=== PATIENT | male | born 1940 | race Caucasian/White ===

== ENCOUNTER 2017-12-27 19:39 | Emergency (ER) | payer OTHER ==
[2017-12-27] MEDS ORDERED: FLUORESCEIN SODIUM 0.6 MG/WRAP ONE (20:18)
[2017-12-27] MEDS ORDERED: TETRACAINE HCL 0.5% 2ML OPTH ONE (20:18)
--- OUTSIDE RECORDS SUMMARY | 2017-12-27 20:26 | XMS REPORT | Clinical Summary ---
:1940 Author Organization [facility] Address [address] [place] [address] Care Team Providers Name Role Phone Donald Monzon MD Primary Care Provider Allergies Active Allergy Reactions Severity Noted Date Comments Codeine Rash Low 10/13/2015 Penicillins Rash Low 10/13/2015 Current Medications Prescription Sig. Disp. Refills Start Date End Date Status glipiZIDE Take 5 mg by Active (GLUCOTROL) 5 MG mouth 2 tablet (two) times a day before meals. fenofibrate 145 MG Take 145 mg Active tablet by mouth nightly. ramipril (ALTACE) 5 Take 5 mg by Active MG capsule mouth nightly. aspirin (ECOTRIN) 81 Take 81 mg Active MG enteric coated by mouth tablet nightly. metFORMIN Take 500 mg Active (GLUCOPHAGE) 500 mg by mouth 2 tablet (two) times a day with meals. clopidogrel (PLAVIX) Take 1 90 tablet 3 08/25/2017 Active 75 mg tablet tablet (75 mg total) by mouth nightly. metoprolol tartrate Take 1 180 tablet 3 10/18/2017 Active (LOPRESSOR) 25 mg tablet (25 tabletIndications: mg total) by Essential mouth 2 hypertension (two) times a day. coenzyme Q10 take 1 Active (COQ-10) 100 mg tablet daily capsule pravastatin Take 1 90 tablet 3 11/30/2017 11/30/2018 Active (PRAVACHOL) 80 MG tablet (80 tablet mg total) by mouth daily. metoprolol tartrate Take 1 180 tablet 3 06/03/2016 10/04/2017 Discontinued (LOPRESSOR) 25 mg tablet (25 tabletIndications: mg total) by Essential mouth 2 hypertension (two) times a day. clopidogrel (PLAVIX) Take 1 90 tablet 3 08/18/2016 08/25/2017 Discontinued 75 mg tablet tablet (75 mg total) by mouth nightly. pravastatin Take 1 90 tablet 3 09/03/2016 10/18/2017 Discontinued (PRAVACHOL) 40 MG tablet (40 tablet mg total) by mouth nightly. pravastatin Take 1 90 tablet 3 10/19/2016 10/19/2017 (PRAVACHOL) 80 MG tablet (80 tabletIndications: mg total) by Hyperlipidemia, mouth unspecified nightly. hyperlipidemia type metoprolol tartrate Take 1 180 tablet 3 10/04/2017 10/04/2017 Discontinued (LOPRESSOR) 25 mg tablet (25 tabletIndications: mg total) by Essential mouth 2 hypertension (two) times a day. metoprolol tartrate Take 1 180 tablet 0 10/04/2017 10/18/2017 Discontinued (LOPRESSOR) 25 mg tablet (25 tabletIndications: mg total) by Essential mouth 2 hypertension (two) times a day. pravastatin Take 1 90 tablet 3 11/30/2017 11/30/2017 Discontinued (PRAVACHOL) 80 MG tablet (80 tablet mg total) by mouth daily. Active Problems Problem Noted Date Stented coronary artery 10/26/2016 Hyperlipidemia 10/26/2016 Coronary artery disease involving [place] coronary artery of [place] heart 10/26 without angina pectoris Hypertension Encounters Date Type Specialty Care Team Description 11/30/2017 Orders Only Cardiology Raman Lares MA 11/30/2017 Orders Only Cardiology Raman Lares MA 10/18/2017 Office Visit Cardiology Bob Doty MD Coronary artery disease involving [place] coronary artery of [place] heart without angina pectoris (Primary Dx); Hyperlipidemia, unspecified hyperlipidemia type; Stented coronary artery 10/18/2017 Orders Only Cardiology Yudith Murillo MA Essential hypertension 10/04/2017 Refill Cardiology Amee Figueredo MA Med Refill 10/04/2017 Refill Cardiology Amee Figueredo MA Med Refill 08/25/2017 Orders Only Cardiology Raman Lares MA after 12/26/2016 Family History Relation Name Status Comments Father Mother Social History Tobacco Use Types Packs/Day Years Used Date Never Smoker Alcohol Use Drinks/Week oz/Week Comments No Sex Assigned at Date Recorded Not on file Last Filed Vital Signs Vital Sign Reading Time Taken Blood Pressure 131/61 10/18/2017 2:22 PM CDT Pulse 77 10/18/2017 2:22 PM CDT Temperature - - Respiratory Rate - - Oxygen Saturation - - Inhaled Oxygen Concentration - - Weight 82.1 kg (181 lb) 10/18/2017 2:22 PM CDT Height 175.3 cm (5' 9") 10/18/2017 2:22 PM CDT Body Mass Index 26.73 10/18/2017 2:22 PM CDT Plan of Treatment Date Type Specialty Care Team Description 04/11/2018 Office Visit Cardiology Bob Doty MD [address] [place] [address] Health Maintenance Due Date Last Done Comments COLON CANCER SCREENING 1992 SHINGRIX VACCINE (#1) 1992 ZOSTER VACCINE 2002 PNEUMOCOCCAL POLYSACCHARIDE VACCINE AGE 65 AND OVER 09/01/2007 PNEUMOCOCCAL-13 09/01/2007 INFLUENZA VACCINE 11/23/2017 Procedures Procedure Name Priority Date/Time Associated Diagnosis Comments COPY RECEIVED FROM: Routine 10/24/2017 7:35 Results for this AM CDT procedure are in the results section. NON HDL CHOLESTEROL Routine 10/24/2017 7:35 Results for this ([facility]) AM CDT procedure are in the results section. CHOL/HDLC RATIO Routine 10/24/2017 7:35 Results for this ([facility]) AM CDT procedure are in the results section. LDL-CHOLESTEROL Routine 10/24/2017 7:35 Results for this ([facility]) AM CDT procedure are in the results section. TRIGLYCERIDES Routine 10/24/2017 7:35 Results for this AM CDT procedure are in the results section. HDL CHOLESTEROL Routine 10/24/2017 7:35 Results for this AM CDT procedure are in the results section. CHOLESTEROL Routine 10/24/2017 7:35 Results for this AM CDT procedure are in the results section. COPY(IES) SENT TO: Routine 10/24/2017 7:35 Results for this AM CDT procedure are in the results section. AST (SGOT) Routine 10/24/2017 7:35 Coronary artery Results for this AM CDT disease involving procedure are in [place] coronary artery the results of [place] heart section. without angina pectoris Hyperlipidemia, unspecified hyperlipidemia type LIPID PANEL Routine 10/24/2017 7:35 Coronary artery Results for this AM CDT disease involving procedure are in [place] coronary artery the results of [place] heart section. without angina pectoris Hyperlipidemia, unspecified hyperlipidemia type after 12/26/2016 Results NON HDL CHOLESTEROL ([facility]) (10/24/2017 7:35 AM) Non-HDL cholesterol 135 (H) <130 mg/dL (calc) [facility] Comment: [place] For patients with diabetes plus 1 major ASCVD risk factor, treating to a non-HDL-C goal of <100 mg/dL (LDL-C of <70 mg/dL) is considered a therapeutic option. Narrative Performed At FASTING:YES [facility] FASTING: YES Resulting Agency Comment Performing Organization Information: Site ID: [id number] Name: [facility] Address: [address] [place] [address] Director: Tonya Greenwood Performing Organization Address [facility] Phone Number [place] [address] CHOL/HDLC RATIO ([facility]) (10/24/2017 7:35 AM) Cholesterol/HDL ratio 5.5 (H) <5.0 (calc) [facility] [place] Narrative Performed At FASTING:YES [facility] FASTING: YES Resulting Agency Comment Performing Organization Information: Site ID: [id number] Name: [facility] Address: [address] [place] [address] Director: Tonya Greenwood Performing Organization Address [facility] Phone Number [place] [place] [address] COPY RECEIVED FROM: (10/24/2017 7:35 AM) Copy received from: [facility] Comment: [address] [facility] [address] [place] [address] Narrative Performed At FASTING:YES [facility] FASTING: YES Performing Organization Address City/[facility] Phone Number [facility] LDL-CHOLESTEROL ([facility]) (10/24/2017 7:35 AM) LDL cholesterol 107 (H) mg/dL (calc) [facility] Comment: [place] Reference range: <100 Desirable range <100 mg/dL for primary prevention; <70 mg/dL for patients with CHD or diabetic patients with > or=2 CHD risk factors. LDL-C is now calculated using the Kiara calculation, which is a validated novel method providing better accuracy than the Friedewald equation in the estimation of LDL-C. Allen PRICE et al. RICKY. 2013;310(19): 6830-2761 (http://education.Academica/faq/GYQ122) Narrative Performed At FASTING:YES [facility] FASTING: YES Resulting Agency Comment Performing Organization Information: Site ID: [facility] Name: [facility] Address: [address] [place] [phone] Director: Tonya Greenwood Performing Organization Address [facility] Phone Number [place] [place] [address] COPY(IES) SENT TO: (10/24/2017 7:35 AM) Copies/mL [facility] Comment: [facility] [id number] [facility] [address] [place] [address] Narrative Performed At FASTING:YES [facility] FASTING: YES Performing Organization Address [facility] Phone Number [facility] Triglycerides (10/24/2017 7:35 AM) Triglycerides 166 (H) <150 mg/dL [facility] [place] Narrative Performed At FASTING:YES [facility] FASTING: YES Resulting Agency Comment Performing Organization Information: Site ID: [place] Name: [facility] Address: [address] [place] [phone] Director: Tonya Greenwood Performing Organization Address [facility] Phone Number [facility] [place] [phone] AST (SGOT) (10/24/2017 7:35 AM) AST 23 10 - 35 U/L [facility] [place] Specimen Blood Narrative Performed At FASTING:YES [facility] FASTING: YES Resulting Agency Comment Performing Organization Information: Site ID: ANDIE Name: [facility] Address: [address] [place] [phone] Director: Tonya Greenwood Performing Organization Address [facility] Phone Number [employer] [employer] [address] [address] HDL cholesterol (10/24/2017 7:35 AM) HDL cholesterol 30 (L) >40 mg/dL [facility] [place] Narrative Performed At FASTING:YES [facility] FASTING: YES Resulting Agency Comment Performing Organization Information: Site ID: [id number] Name: [facility] Address: [address] [place], [place] [id number] Director: Tonya Greenwood Performing Organization Address [facility] Phone Number [facility] [employer] [place] [address] Cholesterol (10/24/2017 7:35 AM) Cholesterol, total 165 <200 mg/dL [facility] [place] Narrative Performed At FASTING:YES [facility] FASTING: YES Resulting Agency Comment Performing Organization Information: Site ID: ANDIE Name: [facility] Address: [address] [place] [address] Director: Tonya Greenwood Performing Organization Address [facility] Phone Number [facility] [employer] [place] [address] Lipid panel (10/24/2017 7:35 AM) Cholesterol, total 165 <200 mg/dL [facility] [place] HDL cholesterol 30 (L) >40 mg/dL [facility] [place] Triglycerides 166 (H) <150 mg/dL [facility] [place] LDL cholesterol 107 (H) mg/dL (calc) [facility] calculated Comment: [place] Reference range: <100 Desirable range <100 mg/dL for primary prevention; <70 mg/dL for patients with CHD or diabetic patients with > or=2 CHD risk factors. LDL-C is now calculated using the Kiara calculation, which is a validated novel method providing better accuracy than the Friedewald equation in the estimation of LDL-C. Allen PRICE et al. RICKY. 2013;310(19): 7817-7308 (http://education.Favoe.Jibestream/faq/NDI798) Cholesterol/HDL ratio 5.5 (H) <5.0 (calc) [facility] [place] Non-HDL cholesterol 135 (H) <130 mg/dL [facility] Comment: (calc) [place] For patients with diabetes plus 1 major ASCVD risk factor, treating to a non-HDL-C goal of <100 mg/dL (LDL-C of <70 mg/dL) is considered a therapeutic option. Specimen Blood Narrative Performed At FASTING:YES [facility] FASTING: YES Resulting Agency Comment Performing Organization Information: Site ID: [id number] Name: [facility] Address: [address] [place] [address] Director: Tonya Greenwood Performing Organization Address City/State/Zipcode Phone Number [facility] [place] [address] [place] [address] after 12/26/2016 Insurance Payer Benefit Plan / Group Subscriber ID Type Phone Address AETNA MEDICARE AETNA MEDICARE HMO/PPO [facility] xxxxxxxx HMO Home: Farrukh DELATORRE [phone] [address]
--- NOTE | 2017-12-27 20:59 | EDPHYS ---
Physician Documentation [facility] Name: Yusef Boyle Age: 77 yrs Sex: Male : 1940 Arrival Date: 12/27/2017 Time: 19:43 Bed 23 Private MD: Donald Monzon ED Physician Duc Pedraza HPI: 12/27 20:47 This 77 yrs old Male presents to ER via Ambulatory with complaints of Eye gs Injury. 20:47 The patient is experiencing pain, The patient sustained an abrasion, to the right eye. gs Onset: The symptoms/episode began/occurred acutely, just prior to arrival, at 19:30. Duration: the symptoms are continuous. Aggravated by blinking, closing eye. Associated signs and symptoms: Pertinent negatives: chills, dizziness, ear ache, fever, headache, runny nose. Severity of symptoms: At their worst the symptoms were mild in the emergency department the symptoms are unchanged. The patient has not experienced similar symptoms in the past. Historical: - Allergies: 19:59 Codeine (rash); aj1 19:59 PENICILLINS (rash); aj1 - Home Meds: 19:59 Altace 5 mg Oral cap 1 cap once daily [Active]; aspirin 81 mg Oral chew 1 tab once aj1 daily [Active]; Centrum 50+ daily [Active]; CoQ-10 100 mg Oral cap daily [Active]; glipizide 5 mg Oral tab 1 tab 2 times per day [Active]; glucosamine-chondroitin 1500/800 mg Oral tab daily [Active]; krill oil 018-75-68-50 mg Oral cap daily [Active]; lutein 5 mg Oral tab daily [Active]; metoprolol tartrate 25 mg Oral tab 1 tab 2 times per day [Active]; Plavix 75 mg Oral tab 1 tab once daily [Active]; Pravachol 75 mg Oral tab once daily [Active]; Super B Complex + C Oral daily [Active]; Tricor 145 mg Oral tab 1 tab once daily [Active]; Vitamin C 1,000 mg Oral tab daily [Active]; - PMHx: 19:59 CAD; Diabetes - NIDDM; cardiac stents; Hyperlipidemia; Hypertension; aj1 - Immunization history:: Flu vaccine is up to date. Last tetanus immunization: up to date. - Social history:: Smoking status: Patient/guardian denies using tobacco. - Ebola Screening: : Patient denies travel to an Ebola-affected area in the 21 days before illness onset. ROS: 20:47 All other systems are negative. gs Exam: 20:47 Head/Face: Normocephalic, atraumatic. ENT: Nares patent. No nasal discharge, no gs septal abnormalities noted. Tympanic membranes are normal and external auditory canals are clear. Oropharynx with no redness, swelling, or masses, exudates, or evidence of obstruction, uvula midline. Mucous membranes moist. Neck: Trachea midline, no thyromegaly or masses palpated, and no cervical lymphadenopathy. Supple, full range of motion without nuchal rigidity, or vertebral point tenderness. No Meningismus. Cardiovascular: Regular rate and rhythm with a normal S1 and S2. No gallops, murmurs, or rubs. Normal PMI, no JVD. No pulse deficits. Respiratory: Lungs have equal breath sounds bilaterally, clear to auscultation and percussion. No rales, rhonchi or wheezes noted. No increased work of breathing, no retractions or nasal flaring. 20:47 Eyes: Periorbital structures: appear normal, Pupils: no acute changes, Extraocular movements: no acute changes, Conjunctiva: no acute changes, Corneas: abrasion, that is small, at 6 o'clock, foreign body, is not appreciated, a fluorescein strip employed to appreciate the findings, Sclera: no appreciated abnormality, Anterior chamber: normal, Lids and lashes: appear normal. 21:11 Eyes: Periorbital structures: small red area on lower left lid looks like superficial gs insect bite. Vital Signs: 19:59 BP 148 / 86; Pulse 77; Resp 18; Temp 97.8; Pulse Ox 97% on R/A; Weight 79.38 kg (R); aj1 Height 5 ft. 9 in. (175.26 cm) (R); Pain 1/10; 20:09 BP 157 / 80; Pulse 70; Pulse Ox 95% on R/A; rv 20:22 BP 143 / 84; Pulse 69; Pulse Ox 94% on R/A; rv 21:13 BP 141 / 75; Pulse 71; Pulse Ox 95% on R/A; rv 19:59 Body Mass Index 25.84 (79.38 kg, 175.26 cm) aj1 Visual Acuity: 20:09 Left Eye Pupil size 2 mm, Constricted, Normal, React To Light, Reactive To rv Accomodation; Right Eye Pupil size 2 mm, Constricted, Normal, React To Light, Reactive To Accomodation; Without Lenses; PATIENT REPORTS BLURRING OF PERIPHERAL VISION MDM: 20:26 Patient medically screened. 20:47 Differential diagnosis: Corneal abrasion of Foreign body in Data reviewed: vital signs, nurses notes. 12/27 20:07 Order name: Visual Acuity; Complete Time: 20:11 12/27 20:07 Order name: Eye Tray; Complete Time: 20:11 12/27 20:07 Order name: Fluoresene Opth strip; Complete Time: 20:11 Administered Medications: 21:10 Drug: ERYTHromycin Ointment 1 application Route: Ophthalmic; Site: right eye; rv 21:10 Follow up: Response: Medication administered at discharge. rv Disposition: 12/27/17 20:58 Discharged to Home. Impression: Injury of conjunctiva and corneal abrasion without foreign body. - Condition is Stable. - Discharge Instructions: Corneal Abrasion, [id number]. - Prescriptions for Erythromycin 5 mg/gram (0.5 %) Ophthalmic Ointment - apply 1 centimeter by OPHTHALMIC route 2-3 times daily for 5 days; 1 tube. - Medication Reconciliation Form, Thank You Letter, Antibiotic Education, Prescription Opioid Use form. - Follow up: Jose Robison MD; When: 2 - 3 days; Reason: Re-evaluation by your physician. Signatures: Nadine Hadley RN RN aj1 Duc Pedraza MD MD Zafar Mcrae RN RN rv Corrections: (The following items were deleted from the chart) 21:12 20:58 12/27/2017 20:58 Discharged to Home. Impression: Injury of conjunctiva and rv corneal abrasion without foreign body. Condition is Stable. Forms are Medication Reconciliation Form, Thank You Letter, Antibiotic Education, Prescription Opioid Use. Follow up: Jose Robison; When: 2 - 3 days; Reason: Re-evaluation by your physician.
--- NOTE | 2017-12-27 20:59 | ER ---
Nurse's Notes [facility] Name: Yusef Boyle Age: 77 yrs Sex: Male : 1940 Arrival Date: 12/27/2017 Time: 19:43 Bed 23 Private MD: Donald Monzon Diagnosis: Injury of conjunctiva and corneal abrasion without foreign body Presentation: 12/27 19:52 Presenting complaint: Patient states: "I had a bunch of branches in a wheel galena and aj1 one of them poked me in the right eye. I went to the bathroom and flushed it with water and put some eye drops in. I've noticed that my vision has started to get blurry in that eye" Denies drainage from right eye. Transition of care: patient was not received from another setting of care. Mechanism of Injury: Poked in the eye by stick. The patient reports a positive loss of vision. The patient's loss of vision began suddenly Reports blurred vison. Onset of symptoms was December 27, 2017 at 19:30. Risk Assessment: Do you want to hurt yourself or someone else? Patient reports no desire to harm self or others. Initial Sepsis Screen: Does the patient meet any 2 criteria? No. Patient's initial sepsis screen is negative. Does the patient have a suspected source of infection? No. Patient's initial sepsis screen is negative. Care prior to arrival: None. 19:52 Method Of Arrival: Ambulatory aj1 20:01 Acuity: BARBARA 2 aj1 Triage Assessment: 19:59 General: Appears in no apparent distress. comfortable, Behavior is calm, cooperative, aj1 appropriate for age. Pain: Complains of pain in right eye Pain currently is 1 out of 10 on a pain scale. EENT: Reports blurred vision. Neuro: Level of Consciousness is awake, alert, obeys commands. Cardiovascular: Patient's skin is warm and dry. Respiratory: Airway is patent Respiratory effort is even, unlabored, Respiratory pattern is regular, symmetrical. Historical: - Allergies: 19:59 Codeine (rash); aj1 19:59 PENICILLINS (rash); aj1 - Home Meds: 19:59 Altace 5 mg Oral cap 1 cap once daily [Active]; aspirin 81 mg Oral chew 1 tab once aj1 daily [Active]; Centrum 50+ daily [Active]; CoQ-10 100 mg Oral cap daily [Active]; glipizide 5 mg Oral tab 1 tab 2 times per day [Active]; glucosamine-chondroitin 1500/800 mg Oral tab daily [Active]; krill oil 239-43-50-50 mg Oral cap daily [Active]; lutein 5 mg Oral tab daily [Active]; metoprolol tartrate 25 mg Oral tab 1 tab 2 times per day [Active]; Plavix 75 mg Oral tab 1 tab once daily [Active]; Pravachol 75 mg Oral tab once daily [Active]; Super B Complex + C Oral daily [Active]; Tricor 145 mg Oral tab 1 tab once daily [Active]; Vitamin C 1,000 mg Oral tab daily [Active]; - PMHx: 19:59 CAD; Diabetes - NIDDM; cardiac stents; Hyperlipidemia; Hypertension; aj1 - Immunization history:: Flu vaccine is up to date. Last tetanus immunization: up to date. - Social history:: Smoking status: Patient/guardian denies using tobacco. - Ebola Screening: : Patient denies travel to an Ebola-affected area in the 21 days before illness onset. Screenin:10 Abuse screen: Denies threats or abuse. Denies injuries from another. Nutritional rv screening: No deficits noted. Tuberculosis screening: No symptoms or risk factors identified. Fall Risk None identified. Assessment: 20:07 General: Appears in no apparent distress. comfortable, Behavior is calm, cooperative. rv Pain: Complains of pain in right eye. Neuro: Level of Consciousness is awake, alert, obeys commands, Oriented to person, place, time, situation. Cardiovascular: Capillary refill < 3 seconds. Respiratory: Airway is patent. GI: No signs and/or symptoms were reported involving the gastrointestinal system. : No signs and/or symptoms were reported regarding the genitourinary system. EENT: Eyes NO OBVIOUS FB SEEN IN THE RIGHT EYE UPON VISUAL ASSESSMENT. Sclera/Cornea. Derm: Skin is intact. 20:22 Reassessment: MATERIALS NEEDED FOR EYE EXAM PREPARED AT BEDSIDE. rv Vital Signs: 19:59 BP 148 / 86; Pulse 77; Resp 18; Temp 97.8; Pulse Ox 97% on R/A; Weight 79.38 kg (R); aj1 Height 5 ft. 9 in. (175.26 cm) (R); Pain 1/10; 20:09 BP 157 / 80; Pulse 70; Pulse Ox 95% on R/A; rv 20:22 BP 143 / 84; Pulse 69; Pulse Ox 94% on R/A; rv 21:13 BP 141 / 75; Pulse 71; Pulse Ox 95% on R/A; rv 19:59 Body Mass Index 25.84 (79.38 kg, 175.26 cm) aj1 Visual Acuity: 20:09 Left Eye Pupil size 2 mm, Constricted, Normal, React To Light, Reactive To rv Accomodation; Right Eye Pupil size 2 mm, Constricted, Normal, React To Light, Reactive To Accomodation; Without Lenses; PATIENT REPORTS BLURRING OF PERIPHERAL VISION ED Course: 19:43 Patient arrived in ED. es 19:43 Donald Monzon MD is Private Physician. es 19:59 Arm band placed on Patient placed in an exam room. aj1 20:01 Triage completed. aj1 20:03 Duc Pedraza MD is Attending Physician. gs 20:10 Patient has correct armband on for positive identification. Bed in low position. Call rv light in reach. Side rails up X 1. Adult w/ patient. Pulse ox on. NIBP on. 20:58 Jose Robison MD is Referral Physician. gs 21:11 No provider procedures requiring assistance completed. Patient did not have IV access rv during this emergency room visit. Administered Medications: 21:10 Drug: ERYTHromycin Ointment 1 application Route: Ophthalmic; Site: right eye; rv 21:10 Follow up: Response: Medication administered at discharge. rv Outcome: 20:58 Discharge ordered by . gs 21:12 Discharged to home ambulatory. rv 21:12 Condition: improved 21:12 Discharge instructions given to patient, Instructed on discharge instructions, follow up and referral plans. medication usage, Demonstrated understanding of instructions, follow-up care, medications, EYE CARE Prescriptions given X 1. 21:12 Patient left the ED. rv Signatures: Nadine Hadley, RN RN aj1 Donna De Souza Duc Pedraza MD MD Zafar Mcrae RN RN rv
[2017-12-27] MEDS ORDERED: ERYTHROMYCIN 3.5GM OPTH OINT ONE (21:08)
== END 2017-12-27 21:12 | disposition home or self-care (01) ==
LOC: ER 19:39
DX: S05.01XA Injury of conjunctiva and corneal abrasion without foreign body, right eye, initial encounter (principal); I10 Essential (primary) hypertension; E78.5 Hyperlipidemia, unspecified; E11.9 Type 2 diabetes mellitus without complications; Z79.01 Long term (current) use of anticoagulants; Z79.82 Long term (current) use of aspirin; Z88.0 Allergy status to penicillin; Z88.5 Allergy status to narcotic agent; Z95.818 Presence of other cardiac implants and grafts
CPT/HCPCS: 99283

== ENCOUNTER 2021-02-02 16:48 | Inpatient (IN) | payer OTHER ==
[2021-02-02 17:20] LABS: Basophils % 0.4 % (0-1.3); Hematocrit 43.4 % (39.6-49.0); Lymphocytes % 12.5 % (15.3-44.8); MPV 7.1 fL (7.6-11.3); RBC Red Blood Cell Count 4.96 M/uL (4.33-5.43)
[2021-02-02 17:55] LABS: Albumin 3.6 g/dL (3.4-5.0); Bilirubin Direct 0.2 mg/dL (0-0.2); Bilirubin Total 0.6 mg/dL (0.2-1.0); Potassium 4.2 mmol/L (3.5-5.1); Protein, Total 7.5 g/dL (6.4-8.2)
[2021-02-02] MEDS ORDERED: NA CHLORIDE 0.9% 1,000 ML ONE ×2 (17:56→19:41)
--- NOTE | 2021-02-02 18:46 | RAD REPORT ---
EXAM DESCRIPTION: CT - Abdomen Pelvis W Contrast - 02/02/2021 6:25 pm CLINICAL HISTORY: Abdominal pain COMPARISON: none. TECHNIQUE: Computed axial tomography of the abdomen pelvis was obtained. 100 cc Isovue-300 was admin istered intravenously. Oral contrast was not requested which limits evaluation of bowel. All CT scans are performed using dose optimization technique as appropriate and may include automated exposure control or mA/KV adjustment according to patient size. FINDINGS: The liver, spleen and adrenals are unremarkable. Pancreas contains many coarse calcifications probably sequela of chronic pancreatitis Several gallstones. Gallbladder wall does not appear thickened. Bilateral renal calculus. No hydronephrosis. The stomach, jejunum and portion of the ileum are moderately dilated. Distal ileum is decompressed. Moderate left inguinal hernia IMPRESSION: These findings are compatible with an ileal obstruction.
--- NOTE | 2021-02-02 19:29 | EDPHYS ---
Physician Documentation [facility] Name: Yusef Boyle Age: 80 yrs Sex: Male : 1940 Arrival Date: 02/02/2021 Time: 16:49 Bed 28 Private MD: ED Physician Shawn Laughlin HPI: 02/02 19:58 This 80 yrs old Male presents to ER via Ambulatory with complaints of Urinary kb Problem, Diarrhea. 19:58 The patient presents to the emergency department with diarrhea. Onset: The kb symptoms/episode began/occurred 4 day(s) ago. Possible causes: unknown. The symptoms are aggravated by nothing. The symptoms are alleviated by nothing. Associated signs and symptoms: Pertinent positives: diarrhea, Pertinent negatives: abdominal pain, fever, nausea, vomiting. Severity of symptoms: At their worst the symptoms were moderate in the emergency department the symptoms are unchanged. The patient has not experienced similar symptoms in the past. The patient has not recently seen a physician. Pt reports diarrhea since Tuesday. Reports decreased urination today and yesterday. came in today because he is worried about dehydration. Historical: - Allergies: 16:56 Codeine (rash); aa5 16:56 PENICILLINS (rash); aa5 - PMHx: 16:56 CAD; cardiac stents; Diabetes - NIDDM; Hyperlipidemia; Hypertension; aa5 - Immunization history:: Client reports receiving the 2nd dose of the Covid vaccine. - Social history:: Smoking status: Patient denies any tobacco usage or history of. ROS: 19:57 Constitutional: Negative for fever, chills, and weight loss. kb 19:57 Abdomen/GI: Positive for diarrhea, Negative for abdominal pain, nausea and vomiting. 19:57 : Positive for decreased urination. 19:57 All other systems are negative. Exam: 19:57 Constitutional: This is a well developed, well nourished patient who is awake, alert, kb and in no acute distress. Head/Face: Normocephalic, atraumatic. ENT: Moist Mucous membranes Cardiovascular: Regular rate and rhythm with a normal S1 and S2. No gallops, murmurs, or rubs. No pulse deficits. Respiratory: Respirations even and unlabored. No increased work of breathing, no retractions or nasal flaring. Abdomen/GI: Soft, non-tender. No distention Skin: Warm, dry with normal turgor. Normal color. MS/ Extremity: Pulses equal, no cyanosis. Neurovascular intact. Full, normal range of motion. Neuro: Awake and alert, GCS 15, oriented to person, place, time, and situation. Moves all extremities. Normal gait. Psych: Awake, alert, with orientation to person, place and time. Behavior, mood, and affect are within normal limits. Vital Signs: 16:57 BP 134 / 74; Pulse 117; Resp 18 S; Temp 97.2(TE); Pulse Ox 100% on R/A; Weight 70.31 kg aa5 (R); Height 5 ft. 9 in. (175.26 cm) (R); 17:19 BP 110 / 73; Pulse 113; Resp 18; Pulse Ox 100% on R/A; Pain 0/10; ld1 17:26 BP 120 / 69 Supine; Pulse 88; es2 17:26 BP 121 / 71 Sitting; Pulse 98; es2 17:26 BP 111 / 77 Standing; Pulse 103; es2 18:30 BP 119 / 59; Pulse 81; Resp 16; Pulse Ox 99% on R/A; es2 18:45 BP 128 / 65; Pulse 85; Resp 18; Pulse Ox 99% on R/A; es2 16:57 Body Mass Index 22.89 (70.31 kg, 175.26 cm) aa5 MDM: 17:01 Patient medically screened. kb 19:56 Data reviewed: vital signs, nurses notes. Data interpreted: Pulse oximetry: on room air kb is 99 %. Interpretation: normal. Counseling: I had a detailed discussion with the patient and/or guardian regarding: the historical points, exam findings, and any diagnostic results supporting the discharge/admit diagnosis, lab results, radiology results, the need for further work-up and treatment in the hospital. Physician consultation: Donald Monzon MD regarding admission, to the telemetry unit. patient's condition, and will see patient in inpatient room. 19:57 Physician consultation: Del Zamarripa MD regarding consult, patient's condition, and kb will see patient in inpatient room. 02/02 17: Order name: Basic Metabolic Panel; Complete Time: 18:24 kb 02/02 17: Order name: CBC with Diff kb 02/02 17: Order name: Hepatic Function; Complete Time: 18:24 kb 02/02 17:01 Order name: Lipase; Complete Time: 18:24 kb 02/02 17:13 Order name: Stool Culture kb 02/02 17:13 Order name: C.difficile kb 02/02 17:01 Order name: Orthostatics; Complete Time: 17:26 kb 02/02 17:13 Order name: CT Abd/Pelvis - IV Contrast Only; Complete Time: 18:51 kb 02/02 19:49 Order name: SARS-COV-2 RT PCR; Complete Time: 21:14 EDMS 02/02 17:01 Order name: IV Saline Lock; Complete Time: 17:10 kb 02/02 17:01 Order name: Labs collected and sent; Complete Time: 17:10 kb Administered Medications: 17:35 Drug: NS 0.9% 1000 ml Route: IV; Rate: 1000 ml; Site: left antecubital; ld1 21:25 Follow up: IV Status: Completed infusion lh3 19:45 Drug: Flagyl (metroNIDAZOLE) 500 mg Volume: 100 ml; Route: IVPB; Rate: 200 ml/hr; lh3 Infused Over: 30 mins; Site: left antecubital; 20:49 Follow up: Response: No adverse reaction; IV Status: Completed infusion lh3 19:46 Drug: NS 0.9% 1000 ml Route: IV; Rate: 80 ml/hr; Site: left antecubital; lh3 21:25 Follow up: IV Status: Completed infusion lh3 21:26 Follow up: IV Status: Infusion continued upon admission lh3 20:49 Drug: Cipro (ciprofloxacin) 400 mg Volume: 200 ml; Route: IVPB; Infused Over: 60 mins; 3 Site: left antecubital; 21:26 Follow up: IV Status: Infusion continued upon admission 3 Disposition: 02/03 08:51 Co-signature as Attending Physician, Shawn Laughlin MD I agree with the assessment and kdr plan of care. Disposition Summary: 02/02/21 19:28 Hospitalization Ordered Hospitalization Status: Inpatient Admission kb Provider: Donald Monzon Location: Telemetry/[facility] (Inpatient) kb Condition: Stable kb Problem: new kb Symptoms: are unchanged kb Bed/Room Type: Standard Room Assignment: 225(02/02/21 21:00) Diagnosis - Small Bowel Obstruction kb Forms: - Medication Reconciliation Form kb - SBAR form kb Signatures: Dispatcher [employer] EDMS Carol Campos, DRUM TESTER-C DRUM TESTER-Nuha Barton RN RN Shawn Mast MD MD kdr Calderon, Audri RN RN aa5 Temitope Rubin RN RN ld1 Lynn Hendrickson RN RN lh3 Corrections: (The following items were deleted from the chart) 02/02 19:49 19:10 CORONAVIRUS+MRADRIANA.BRZ ordered. EDMS EDMS 21:00 19:28 marisol mejia
--- NOTE | 2021-02-02 19:29 | ER ---
Nurse's Notes [facility] Name: Yusef Boyle Age: 80 yrs Sex: Male : 1940 Arrival Date: 02/02/2021 Time: 16:49 Bed 28 Private MD: Diagnosis: Small Bowel Obstruction Presentation: 02/02 16:57 Chief complaint: Patient states: diarrhea since Tuesday. Pt states "I noticed my heart aa5 rate was 99 yesterday when it normally is around 60s and my blood pressure was 100/50". Pt also reports last void was today around 0730 and denies urge to pee since then. Pt denies vomiting but reports nausea. Coronavirus screen: diarrhea. Ebola Screen: Patient negative for fever greater than or equal to 101.5 degrees Fahrenheit, and additional compatible Ebola Virus Disease symptoms. Initial Sepsis Screen: Does the patient meet any 2 criteria? HR > 90 bpm. Does the patient have a suspected source of infection? No. Patient's initial sepsis screen is negative. Risk Assessment: Do you want to hurt yourself or someone else? Patient reports no desire to harm self or others. Onset of symptoms was January 2021. 16:57 Method Of Arrival: Ambulatory aa5 16:57 Acuity: BARBARA 3 aa5 Historical: - Allergies: 16:56 Codeine (rash); aa5 16:56 PENICILLINS (rash); aa5 - PMHx: 16:56 CAD; cardiac stents; Diabetes - NIDDM; Hyperlipidemia; Hypertension; aa5 - Immunization history:: Client reports receiving the 2nd dose of the Covid vaccine. - Social history:: Smoking status: Patient denies any tobacco usage or history of. Screenin:19 Abuse screen: Denies threats or abuse. Denies injuries from another. Nutritional ld1 screening: No deficits noted. Tuberculosis screening: No symptoms or risk factors identified. Fall Risk None identified. Assessment: 17:19 General: Appears in no apparent distress. comfortable, Behavior is calm, cooperative, ld1 appropriate for age. Pain: Denies pain. Neuro: Level of Consciousness is awake, alert, obeys commands, Oriented to person, place, time, situation. Cardiovascular: Capillary refill < 3 seconds Patient's skin is warm and dry. Respiratory: Airway is patent Respiratory effort is even, unlabored, Respiratory pattern is regular, symmetrical. GI: Abdomen is flat, non-distended. GI: Reports diarrhea. : No signs and/or symptoms were reported regarding the genitourinary system. : Reports inability to void. EENT: No signs and/or symptoms were reported regarding the EENT system. Derm: No signs and/or symptoms reported regarding the dermatologic system. Musculoskeletal: No signs and/or symptoms reported regarding the musculoskeletal system. 18:57 Reassessment: Patient appears in no apparent distress at this time. No changes from es2 previously documented assessment. Patient and/or family updated on plan of care and expected duration. Pain level reassessed. Patient is alert, oriented x 3, equal unlabored respirations, skin warm/dry/pink. Vital Signs: 16:57 BP 134 / 74; Pulse 117; Resp 18 S; Temp 97.2(TE); Pulse Ox 100% on R/A; Weight 70.31 kg aa5 (R); Height 5 ft. 9 in. (175.26 cm) (R); 17:19 BP 110 / 73; Pulse 113; Resp 18; Pulse Ox 100% on R/A; Pain 0/10; ld1 17:26 BP 120 / 69 Supine; Pulse 88; es2 17:26 BP 121 / 71 Sitting; Pulse 98; es2 17:26 BP 111 / 77 Standing; Pulse 103; es2 18:30 BP 119 / 59; Pulse 81; Resp 16; Pulse Ox 99% on R/A; es2 18:45 BP 128 / 65; Pulse 85; Resp 18; Pulse Ox 99% on R/A; es2 16:57 Body Mass Index 22.89 (70.31 kg, 175.26 cm) aa5 ED Course: 16:49 Patient arrived in ED. ds1 16:56 Arm band placed on. aa5 16:59 Triage completed. aa5 17:01 [facility]C [facility] kb 17:01 Shawn Laughlin MD is Attending Physician. kb 17:10 Basic Metabolic Panel Sent. ld1 17:10 CBC with Diff Sent. ld1 17:10 Hepatic Function Sent. ld1 17:10 Lipase Sent. ld1 17:11 Inserted saline lock: 20 gauge in left antecubital area, using aseptic technique. Blood ld1 collected. 17:19 Patient has correct armband on for positive identification. Bed in low position. Call ld1 light in reach. Side rails up X2. night monitor on. Pulse ox on. NIBP on. Door closed. Noise minimized. Warm blanket given. 17:19 No provider procedures requiring assistance completed. ld1 17:26 Lipase Sent. es2 17:26 Hepatic Function Sent. es2 17:26 Basic Metabolic Panel Sent. es2 18:25 CT Abd/Pelvis - IV Contrast Only In Process Unspecified. EDPA 19:27 Donald Monzon MD is Hospitalizing Provider. kb 21:15 Patient admitted, IV remains in place. 3 Administered Medications: 17:35 Drug: NS 0.9% 1000 ml Route: IV; Rate: 1000 ml; Site: left antecubital; ld1 21:25 Follow up: IV Status: Completed infusion 3 19:45 Drug: Flagyl (metroNIDAZOLE) 500 mg Volume: 100 ml; Route: IVPB; Rate: 200 ml/hr; lh3 Infused Over: 30 mins; Site: left antecubital; 20:49 Follow up: Response: No adverse reaction; IV Status: Completed infusion 3 19:46 Drug: NS 0.9% 1000 ml Route: IV; Rate: 80 ml/hr; Site: left antecubital; 3 21:25 Follow up: IV Status: Completed infusion 3 21:26 Follow up: IV Status: Infusion continued upon admission 3 20:49 Drug: Cipro (ciprofloxacin) 400 mg Volume: 200 ml; Route: IVPB; Infused Over: 60 mins; 3 Site: left antecubital; 21:26 Follow up: IV Status: Infusion continued upon admission 3 Outcome: 19:28 Decision to Hospitalize by Provider. kb 21:15 Admitted to Med/surg room 225, with chart. 3 21:15 Condition: good 21:15 Instructed on the need for admit. 22:05 Patient left the ED. 3 Signatures: Dispatcher [employer] EDMS Carol Campos, ESTRELLA BRYANT-Natali Benavidez ds1 Virginia Salmeron, RN RN aa5 Temitope Rubin RN RN ld1 Lynn Hendrickson RN RN lh3 Kayy Bae RN RN es2 Corrections: (The following items were deleted from the chart) 19:49 19:45 CORONAVIRUS+LAB.BRZ drawn and sent. 3 EDPA
[2021-02-02] MEDS ORDERED: METRONIDAZOLE 500mg IVPB 500 MG/100 ML BAG IV ONE (19:42)
[2021-02-02] MEDS ORDERED: Ciprofloxacin 200mg IV 200 MG/100 ML IV.SOLN. IV ONE (19:42)
[2021-02-02 20:49] VITALS: BMI 22.8
[2021-02-02] MEDS ORDERED: MORPHINE 4 MG/ML SYR IV PRN (20:50)
[2021-02-02] MEDS: NA CHLORIDE 0.9% 1,000 ML IV SCH (20:50)
[2021-02-02] MEDS ORDERED: ACETAMINOPHEN 500 MG TAB PO PRN (20:50)
[2021-02-02] MEDS ORDERED: ONDANSETRON 4 MG/2 ML VIAL IV PRN (20:50)
[2021-02-02] MEDS: CIPROFLOXACIN 400mg IV 400 MG/200 ML BAG IV SCH (21:00)
[2021-02-02 22:44] LABS: Blood Morphology Comment NOT SEEN (NOT SEEN); Platelet Estimate ADEQ
[2021-02-02] MEDS ORDERED: D50W 25 GM/50 ML SYRINGE IV PRN (22:56)
[2021-02-02] MEDS ORDERED: GLUCAGON 1 MG/VIAL IM PRN (22:56)
[2021-02-02] MEDS: INSULIN -REGULAR HUMAN 50 UNIT/0.5 ML ML SQ SCH (23:54)
[2021-02-03] MEDS: METRONIDAZOLE 500mg IVPB 500 MG/100 ML BAG IV SCH ×3 (00:34→16:10)
[2021-02-03] MEDS: INSULIN -REGULAR HUMAN 50 UNIT/0.5 ML ML SQ SCH ×3 (05:55→18:00)
[2021-02-03 06:03] LABS: Absolute Lymphocytes (CBC) 0.7 K/uL (0.7-4.9); Basophils % 0.4 % (0-1.3); Hematocrit 38.5 % (39.6-49.0); Lymphocytes % 10.5 % (15.3-44.8); MPV 7.3 fL (7.6-11.3); RBC Red Blood Cell Count 4.41 M/uL (4.33-5.43)
[2021-02-03 06:14] LABS: Albumin 2.9 g/dL (3.4-5.0); Bilirubin Direct 0.2 mg/dL (0-0.2); Bilirubin Total 0.6 mg/dL (0.2-1.0); Potassium 4.1 mmol/L (3.5-5.1); Protein, Total 6.2 g/dL (6.4-8.2)
--- NOTE | 2021-02-03 09:19 | RAD REPORT ---
EXAM DESCRIPTION: RAD - Abdomen 1 View (KUB) - 02/03/2021 6:48 am CLINICAL HISTORY: Small Bowel Obstruction Pain COMPARISON: Abdomen Pelvis W Contrast dated 02/02/2021 FINDINGS: Several prominent and dilated small bowel loops are present in the central abdomen. This i s compatible with a mild mechanical small-bowel obstruction however appears mildly improved since yes terday's CT study. No pneumoperitoneum is present.
[2021-02-03] MEDS: CIPROFLOXACIN 400mg IV 400 MG/200 ML BAG IV SCH ×2 (09:33→21:23)
[2021-02-03] MEDS: NA CHLORIDE 0.9% 1,000 ML IV SCH (09:37)
[2021-02-03 12:06] LABS: C.diff Antigen/Toxin Ag neg : Tox neg (NEG : NEG)
--- NOTE | 2021-02-03 15:06 | PN ---
Date of Progress Note: 02/03/2021 The patient states he felt somewhat better this morning. Hydration has improved. Urinating better. Vital signs are stable. His blood sugar is stable. We will start his p.o. medications as necessary and follow up with a KUB. One this morning did show some mild improvement from the admission. He i s still nontender. Suspect failure to conservative treatment and it should be responsive to a regula r diet for him. HR/MODL Voice ID: [id number] Report ID: [id number]
--- NOTE | 2021-02-03 15:28 | HP ---
Date of Admission: 02/02/2021 Entrance Complaint: Diarrhea, general malaise. History Of Present Illness: The patient presented to the emergency room with the above outlined symp toms. He stated it started a couple of days before with sudden onset of diarrhea, nausea, and anorex ia. The diarrhea progressed. He took a couple of Lomotil, improved temporarily, and then noticed he was not putting out much urine as usual. His diarrhea continued and he presented to the emergency r oom. The patient does state he did have some food on , which he felt may have played a part in it as he is the only one who knows that he got sick, however, the rest of the family di d not. The patient did state since he felt some nauseated, he induced some vomiting, at which time, he notic ed what he felt were particles from fruit like blueberry tissue; however, this was only on 2 occasion s, but he did state he ate some fruit during that meal that he thought might be implicated in this si tuation. Past History: 1.The patient did have a right inguinal hernia repair almost 30 years ago. 2.CAD by history. 3.NIDDM, good control. Social History: Nonsmoker, nondrinker. Family History: Noncontributory. Physical Examination: General: The patient is an elderly male. Vital Signs: Stable vital signs. In no acute distress, but uncomfortable. Head and Neck: Normocephalic. Pupils are equal and reactive to accommodation. Fundi negative. Tra merary midline. Thyroid not palpable. ENT: Negative. Chest: Clear to P and A. Cardiovascular: PMI midclavicular line. Heart sounds normal. Peripheral pulses present and equal bilaterally. Abdomen: Slightly distended. No guarding, rebound, tenderness, or rigidity. Bowel sounds hypoactiv e. Extremities: Moderately dehydrated. Good tone and movement bilaterally. Reflexes physiologic. Rectal: Deferred. Impression: Ileus, unknown etiology, possible enteritis and no mechanical obstruction. Plan: The patient was admitted and placed on IV fluids. He was started on antibiotics and the possi bility of being infectious, especially since C diff, which will be checked for. CT and KUB revealed mild mechanical ileus, mainly at the ileum. He will be kept n.p.o. and depending on the results of f urther imaging, diet will be advanced. Surgery consultation will also be obtained. HR/MODL Voice ID: [id number]
[2021-02-03] MEDS: D5 0.9 NS 1,000 ML IV SCH (18:29)
[2021-02-03] MEDS: ramipriL 5 MG CAP PO SCH (21:19)
[2021-02-03] MEDS: METOPROLOL TAR 25 MG TAB PO SCH (21:20)
[2021-02-04] MEDS: METRONIDAZOLE 500mg IVPB 500 MG/100 ML BAG IV SCH ×2 (01:13→08:50)
[2021-02-04 05:58] LABS: Absolute Lymphocytes (CBC) 0.7 K/uL (0.7-4.9); Basophils % 0.6 % (0-1.3); Hematocrit 37.3 % (39.6-49.0); Lymphocytes % 12.3 % (15.3-44.8); RBC Red Blood Cell Count 4.34 M/uL (4.33-5.43)
[2021-02-04] MEDS: INSULIN -REGULAR HUMAN 50 UNIT/0.5 ML ML SQ SCH ×4 (06:00→18:00)
[2021-02-04 06:12] LABS: Albumin 2.8 g/dL (3.4-5.0); Bilirubin Total 0.4 mg/dL (0.2-1.0); Potassium 3.9 mmol/L (3.5-5.1)
--- NOTE | 2021-02-04 08:30 | RAD REPORT ---
EXAM DESCRIPTION: RAD - Abdomen 1 View (KUB) - 02/04/2021 7:10 am CLINICAL HISTORY: f/u COMPARISON: Abdomen 1 View (KUB) dated 02/03/2021; Abdomen Pelvis W Contrast dated 02/02/2021 FINDINGS: Decreased small bowel dilatation in the central abdomen right lower quadrant. There is sti ll some mild residual dilatation with 1 loop of small bowel for example measuring nearly 4 cm. It pre viously measured nearly 5 cm. No acute osseous abnormality.Visualized lungs are unremarkable.No abnor mal calcifications. Moderate stool in the ascending colon. IMPRESSION: Decreased small bowel dilatation which may reflect improvement and/or resolving small paulette wel obstruction .
[2021-02-04] MEDS: METOPROLOL TAR 25 MG TAB PO SCH ×2 (08:48→21:20)
[2021-02-04] MEDS: CLOPIDOGREL 75 MG TABLET PO SCH (08:48)
[2021-02-04] MEDS: CIPROFLOXACIN 400mg IV 400 MG/200 ML BAG IV SCH (08:49)
[2021-02-04] MEDS: ASPIRIN EC 81 MG TAB PO SCH (08:49)
--- NOTE | 2021-02-04 20:20 | PN ---
Date of Progress Note: 02/04/2021 The patient still continues to improve. His abdomen, no distention, nontender. Bowel sounds almost back to normal. Hydration is improved as well. Urination is improved. Still anorectic. He is tole rating his clear liquids. We will repeat a KUB in the morning. Today's was improved over yesterday' s. Try and advance his diet as tolerated. He could be discharged. C diff was negative. We will di scontinue his IV antibiotics. Blood sugar is now stabilizing after an episode of 70 which required D 50. Lab work normal. HR/MODL Voice ID: [id number] Report ID: [id number]
[2021-02-04] MEDS: ramipriL 5 MG CAP PO SCH (21:20)
[2021-02-05] MEDS: D5 0.9 NS 1,000 ML IV SCH (01:20)
[2021-02-05] MEDS: INSULIN -REGULAR HUMAN 50 UNIT/0.5 ML ML SQ SCH ×5 (07:30→20:30)
--- NOTE | 2021-02-05 07:43 | RAD REPORT ---
EXAM DESCRIPTION: RAD - Abdomen 1 View (KUB) - 02/05/2021 6:13 am CLINICAL HISTORY: f/u COMPARISON: Abdomen 1 View (KUB) dated 02/04/2021; Abdomen 1 View (KUB) dated 02/03/2021; Abdomen Pelvis W Contrast dated 02/02/2021 FINDINGS: Persistent dilated small bowel loops within the central abdomen. No acute osseous abnormal ity.Visualized lungs are unremarkable.No abnormal calcifications. IMPRESSION: Persistent small bowel dilatation which remains concerning for continued small bowel obs truction. The suspected improvement from yesterday's abdominal radiograph is not evident on today's. The findings are more similar to the radiograph from 02/03/2021.
[2021-02-05] MEDS: ENOXAPARIN 40 MG/0.4 ML SQ SCH (09:26)
[2021-02-05] MEDS: METOPROLOL TAR 25 MG TAB PO SCH ×2 (09:26→20:30)
[2021-02-05] MEDS: ASPIRIN EC 81 MG TAB PO SCH (09:26)
[2021-02-05] MEDS: CLOPIDOGREL 75 MG TABLET PO SCH (09:26)
[2021-02-05] MEDS ORDERED: MORPHINE 2 MG/ML SYR IV PRN (14:45)
--- NOTE | 2021-02-05 20:14 | PN ---
Date of Progress Note: 02/05/2021 Reason For Service: Small bowel obstruction. He is feeling great, passing flatus. No nausea, no vo miting. Although when we reviewed the x-rays from today shows findings dating back to the day before yesterday. The patient stated previously that he a libertarian eating different foods. Some p alfreda got sick on the libertarian, but he is the 1 who got worse to get admitted. He was admitted with sma ll bowel obstruction. Yesterday x-rays improved, today shows once again going back after trying rsoe r liquid diet, although clinically he feels fantastic. Abdomen is benign. Extremities good capillar y refill. X-rays once again reviewed from today. Plan: We can do a small bowel series. A small bowel series will help us determine if there is an ob struction there or not. If the small bowel series is negative, then we are going to advance diet as he progresses clinically. If the small bowel is positive for bowel obstruction, then we may consider once again and discuss a surgical intervention. MARIUM/EDISON Voice ID: [id number] Report ID: [id number]
[2021-02-05] MEDS: ramipriL 5 MG CAP PO SCH (20:30)
--- NOTE | 2021-02-05 21:05 | CON ---
Date of Consultation: 02/04/2021 Reason For Consultation: Small bowel obstruction. History Of Present Illness: This is a case of a 80-year-old patient admitted to the hospital with na usea and vomiting. He does not remember having anything like this before. Previous colonoscopies nixon ve been negative. The only thing he remember is that before this started, he was in a nondenominational get-tog ether. They were eating food prep not by him. Some people got sick from the food, but they just rec overed, but in his case, developed nausea and vomiting and he came to the hospital and the x-ray show s possible obstruction. The patient was admitted. He denies any trauma, dysuria, hematuria, hematoc hezia, melena. He denies any recent travel out of the country. See H and P for above. Review of Systems: Nausea, vomiting, and diarrhea. No shortness of breath. No chest pain. No fever. Review of system s ten points otherwise unremarkable. Allergies: INCLUDE PENICILLIN, CODEINE. Social History: He does not smoke. He does not drink alcohol. Family History: Noncontributory. Past Surgical History: Include hernia surgery about 20 years ago. Physical Examination: General: The patient awake and alert. HEENT: Pupils are equal and reactive. Anicteric. Neck: Supple. Chest: Clear. Abdomen: Soft and depressible. Mild abdominal distention. No guarding or rebound. No peritoneal s igns. Extremities: Good capillary refill. Laboratory Data: Blood work reviewed. CT scan reviewed with the patient. Plan: He feels better. Compared with the previous CT scan, the x-ray of February 04 shows an improve ment. So we going to start clear liquid diet. We believe this should have to be some related to mos t likely food related or allergy related. We do not see any evidence of mechanical obstruction at th is time and the hernia is not causing any obstruction. We proceed accordingly after a liquid diet an d if we see that he does not improve or he gets worse, than we may consider surgical intervention, ev en a small bowel series. HM/MODL Voice ID: [id number] Report ID: [id number]
[2021-02-06 00:43] VITALS: O2SAT 97
[2021-02-06] MEDS: D5 0.9 NS 1,000 ML IV SCH (05:01)
[2021-02-06] MEDS: INSULIN -REGULAR HUMAN 50 UNIT/0.5 ML ML SQ SCH ×2 (07:30→11:30)
[2021-02-06 08:27] VITALS: TEMP 97
[2021-02-06] MEDS: ENOXAPARIN 40 MG/0.4 ML SQ SCH (09:00)
[2021-02-06] MEDS: ASPIRIN EC 81 MG TAB PO SCH (09:00)
[2021-02-06] MEDS: METOPROLOL TAR 25 MG TAB PO SCH (09:00)
--- NOTE | 2021-02-06 11:07 | PN ---
Date of Progress Note: 02/05/2021 The patient states he feels somewhat better today, although he is not getting his appetite. He has b een a little more active; however, his KUB does not show any improvement; therefore, consider a small bowel series tomorrow. He continues to have changes on his x-ray. No vomiting. Bowel movement has been present, formed, discolored. Culture is still negative. We will monitor as regard to the radi ological study results. HR/MODL Voice ID: [id number] Report ID: [id number]
--- NOTE | 2021-02-06 11:07 | PN ---
Date of Progress Note: 02/06/2021 The patient states he feels almost back to normal today except for his appetite. He is much more act padma. He has not had another bowel movement. Abdomen is still soft. We will repeat a KUB; if no jana nge, proceed to the small-bowel series. HR/MODL Voice ID: [id number] Report ID: [id number]
--- NOTE | 2021-02-06 11:55 | RAD REPORT ---
EXAM DESCRIPTION: RAD - Abdomen W Erect - 02/06/2021 10:12 am CLINICAL HISTORY: Abdominal pain FINDINGS: Air is present within a few borderline dilated loops of small bowel. The caliber has dimin ished since CT February 02, 2021. Free air is not seen beneath the diaphragm. Air is present within the colon.
[2021-02-06] MEDS: CLOPIDOGREL 75 MG TABLET PO SCH (13:18)
--- NOTE | 2021-02-06 13:18 | RAD REPORT ---
EXAM DESCRIPTION: RAD - Small Bowel Series - 02/06/2021 12:24 pm CLINICAL HISTORY: Abdominal pain/ COMPARISON: February 02, 2021 cat scan FINDINGS: Contrast enters the colon by approximately 1 hour 40 minutes The mucosal folds of the small bowel appear normal. No permanent filling defects, obstructing or constricting lesions are seen. There is mild dilatation of portions of the jejunum and ileum. The distal ileum normal caliber IMPRESSION: Mild dilatation of jejunum and portion of ileum may represent an enteritis or mild parti al ileal obstruction
[2021-02-06 16:14] VITALS: BP 136/64
--- NOTE | 2021-02-06 19:37 | PN ---
Date of Progress Note: 02/06/2021 Diagnosis: Small bowel obstruction. Subjective: The patient doing better. No shortness of breath. No chest pain. No fever. No abdomi nal pain. Passing flatus and bowel movement. Objective: CHEST: Clear. ABDOMEN: Soft and depressible. Small bowel series is still in progress. The x-ray from this morning, still have some dilated bowel loops. If the small bowel series come back negative for obstruction, then advance diet. Follow with the fare collector. Follow up with us next week. If the small bowel to come back as an obstruc tion, then we will proceed accordingly and plan accordingly. MARIUM/EDISON Voice ID: [id number] Report ID: [id number]
== END 2021-02-06 15:24 | disposition home or self-care (01) | DRG 390 ==
LOC: ER 16:48 → ERHOLD 19:54 → 2ND 22:04
PROVIDERS: ADMIT Family Medicine; ATTEND Family Medicine
DX: K56.699 Other intestinal obstruction unspecified as to partial versus complete obstruction (principal); I25.10 Atherosclerotic heart disease of native coronary artery without angina pectoris; E11.9 Type 2 diabetes mellitus without complications; E78.5 Hyperlipidemia, unspecified; I10 Essential (primary) hypertension; Z95.5 Presence of coronary angioplasty implant and graft; Z88.0 Allergy status to penicillin; Z88.5 Allergy status to narcotic agent; Z20.822 Contact with and (suspected) exposure to COVID-19
CPT/HCPCS: 36415; 74018; 74019; 74177; 74250; 80048; 80053; 80076; 82947; 83690; 85025; 87045; 87046; 87324; 87449; 96361; 96365; 96367; 99285; J0744; J1650; J7030; J7042; Q9967; U0003

== ENCOUNTER 2021-05-22 09:14 | Emergency (ER) | payer OTHER ==
--- OUTSIDE RECORDS SUMMARY | 2021-05-22 09:18 | XMS REPORT | Continuity of Care Document ---
:1940 Author Organization [facility] t Address [address] [place] [address] [address]. Alman[address] [place] [address] Care Team Providers Name Role Phone KIRK Attending Clinician Unavailable MERCEDES Attending Clinician Unavailable LETY Attending Clinician Unavailable LETY Admitting Clinician Unavailable MERCEDES Admitting Clinician Unavailable Problems This patient has no known problems. Allergies, Adverse Reactions, Alerts This patient has no known allergies or adverse reactions. Medications This patient has no known medications. Procedures This patient has no known procedures. Encounters Start End Encounter Admission Attending Care Care Encounter Source Date/Time Date/Time Type Type Clinicians Facility Department ID 2021-05-07 2021-05-07 [facility] [id number] [address] [place] 00:00:00 00:00:00 [place] [address] 2021-04-23 2021-04-23 Outpatient [facility] [id number] [place] 00:00:00 00:00:[address] 2021-04-20 2021-04-20 Out[facility] [id number] [place] 00:00:00 00:00:00 [place] [address] 2020-10-17 2020-10-17 Out[facility] [id number] [address] [place] 00:00:00 00:00:00 [place] [address] 2020-10-07 2020-10-07 [facility] [id number] [place] 00:00:00 00:00:00 GO [address] 2020-05-26 2020-05-26 Outpatient [facility] [id number] [place] 00:00:00 00:00:[address] 2020-04-28 2020-04-28 Outpatient [facility] [id number] [place] 00:00:00 00:00:[address] 2020-04-08 2020-04-08 [facility] [id number] [address] [place] 00:00:00 00:00:00 GO [address] 2020-03-27 2020-03-27 Outpatient [facility] [id number] [place] 00:00:00 00:00:[address] 2019-12-27 2019-12-27 Outpatient [facility] [id number] [place] 00:00:00 00:00:[address] 2019-09-27 2019-09-27 Outpatient [facility] [id number] [place] 00:00:00 00:00:[address] 2019-07-24 2019-07-24 Outpatient LONG, [facility] [id number] [place] 00:00:00 00:00:00 GO [address] 2019-07-23 2019-07-23 Outpatient LONG, [facility] [id number] [place] 00:00:00 00:00:00 GO [address] 2019-07-18 2019-07-18 Outpatient RELEE ROSS [facility] [id number] [place] 00:00:00 00:00:[address] 2019-07-03 2019-07-09 Inpatient RELEE, ROSS [facility] [id number] [place] 00:00:00 00:00:[address] 2019-06-26 2019-06-26 Outpatient LETY, ROSS [facility] [id number] [place] 00:00:00 00:00:[address] 2019-06-13 2019-06-13 Outpatient LONG, [facility] [id number] [address] [place] 00:00:00 00:00:[address] GO [address] Results This patient has no known results.
--- NOTE | 2021-05-22 10:38 | RAD REPORT ---
EXAM DESCRIPTION: RAD - Foot Left 3 View - 05/22/2021 10:18 am CLINICAL HISTORY: PAIN COMPARISON: No comparisons FINDINGS: No acute fracture or dislocation. Small posterior and plantar calcaneal spurs.
--- NOTE | 2021-05-22 11:01 | ER ---
Nurse's Notes [facility] Name: Yusef Boyle Age: 80 yrs Sex: Male : 1940 Arrival Date: 05/22/2021 Time: 09:18 Bed 20 Private MD: Donald Monzon Diagnosis: Other sprain of left foot Presentation: 05/22 09:21 Chief complaint: Patient states: he stumbled yesterday, and caught himself. However it ap3 is reported the patient injured his left foot. Patient reports that he is able to put weight on the heel of his left foot, but not the rest. Patient reports swelling to the lateral left foot. Coronavirus screen: At this time, the client does not indicate any symptoms associated with coronavirus-19. Ebola Screen: No symptoms or risks identified at this time. Initial Sepsis Screen: Does the patient meet any 2 criteria? No. Patient's initial sepsis screen is negative. Does the patient have a suspected source of infection? No. Patient's initial sepsis screen is negative. Risk Assessment: Do you want to hurt yourself or someone else? Patient reports no desire to harm self or others. Onset of symptoms was May 21, 2021. 09:21 Method Of Arrival: Ambulatory ap3 09:21 Acuity: BARBARA 4 ap3 Triage Assessment: 09:26 General: Appears in no apparent distress. comfortable, Behavior is calm, cooperative, ap3 appropriate for age. Pain: Complains of pain in left foot Pain does not radiate. Pain currently is 2 out of 10 on a pain scale. Alleviated by rest, Aggravated by weight bearing. Neuro: Level of Consciousness is awake, alert, obeys commands, Oriented to person, place, time, situation, Appropriate for age Gait is steady, Speech is normal. Respiratory: Airway is patent Respiratory effort is even, unlabored. Musculoskeletal: Swelling present in left foot. Injury Description: patient stumbled yesterday and caught his weight with his left foot. Historical: - Allergies: 09:23 PENICILLINS (rash); ap3 - Home Meds: :23 Altace 5 mg Oral cap 1 cap once daily [Active]; aspirin 81 mg Oral chew 1 tab once ap3 daily [Active]; Centrum 50+ daily [Active]; CoQ-10 100 mg Oral cap daily [Active]; krill oil 216-53-21-50 mg Oral cap daily [Active]; metoprolol tartrate 25 mg Oral tab 1 tab 2 times per day [Active]; Plavix 75 mg Oral tab 1 tab once daily [Active]; Super B Complex + C Oral daily [Active]; Tricor 145 mg Oral tab 1 tab once daily [Active]; nateglinide 60 mg oral tab 1 tab 3 times per day [Active]; - PMHx: 09:23 cardiac stents; CAD; Diabetes - NIDDM; Hyperlipidemia; Hypertension; ap3 - Immunization history:: Client reports receiving the 2nd dose of the Covid vaccine, and booster. - Social history:: Smoking status: Patient denies any tobacco usage or history of. Screenin:28 Abuse screen: Denies threats or abuse. Nutritional screening: No deficits noted. ap3 Tuberculosis screening: No symptoms or risk factors identified. 10:14 Fall Risk Fall in past 12 months (25 points). Ambulatory Aid- None/Bed Rest/Nurse eo2 Assist (0 pts). Assessment: 10:14 General: Appears in no apparent distress. comfortable, Behavior is calm, cooperative. eo2 Pain: Complains of pain in left foot. Neuro: Level of Consciousness is awake, alert, obeys commands, Oriented to person, place, time, situation. Cardiovascular: No deficits noted. Denies chest pain, shortness of breath. Respiratory: No deficits noted. Denies cough, shortness of breath. Musculoskeletal: Reports pain in left foot s/p fall yesterday. Noted redness and mild swelling to left lateral foot. Vital Signs: 09:21 BP 155 / 72; Pulse 72; Resp 17; Temp 97.9; Pulse Ox 100% ; Weight 72.57 kg; Height 5 ap3 ft. 9 in. (175.26 cm); Pain 2/10; 10:14 BP 116 / 61; Pulse 65; Resp 15; Pulse Ox 100% ; Pain 8/10; eo2 11:00 BP 140 / 61; Pulse 63; Resp 15; Pulse Ox 100% ; Pain 6/10; eo2 09:21 Body Mass Index 23.63 (72.57 kg, 175.26 cm) ap3 ED Course: 09:18 Patient arrived in ED. mr 09:18 Donald Monzon MD is Private Physician. mr 09:19 Shawn Laughlin MD is Attending Physician. kdr 09:23 Triage completed. ap3 09:28 Arm band placed on right wrist. ap3 09:30 Audelia De La Paz, RN is Primary Nurse. eo2 10:14 Patient has correct armband on for positive identification. eo2 10:14 No provider procedures requiring assistance completed. Patient did not have IV access eo2 during this emergency room visit. 10:17 Foot Left 3 View XRAY In Process Unspecified. EDMS 10:59 Donald Monzon MD is Referral Physician. kdr Administered Medications: No medications were administered Outcome: 11:00 Discharge ordered by . kdr 11:19 Discharged to home ambulatory. eo2 11:19 Condition: stable 11:19 Discharge instructions given to patient, Instructed on discharge instructions, follow up and referral plans. Demonstrated understanding of instructions, follow-up care. 11:19 Patient left the ED. eo2 Signatures: Dispatcher [employer] EDMS Shawn Laughlin MD MD kdr Alexandrea Garcia Yanely Dubon, RN RN ap3 Audelia De La Paz RN RN eo2 Corrections: (The following items were deleted from the chart) 09:26 09:23 Allergies: Codeine (rash); ap3 ap3
--- NOTE | 2021-05-22 11:01 | EDPHYS ---
Physician Documentation [facility] Name: Yusef Boyle Age: 80 yrs Sex: Male : 1940 Arrival Date: 05/22/2021 Time: 09:18 Bed 20 Private MD: Donald Monzon ED Physician Shawn Laughlin HPI: 05/22 13:31 This 80 yrs old Male presents to ER via Ambulatory with complaints of Foot Injury. kdr 13:31 The complaints affect the left foot. Context: The problem was sustained at home, kdr resulted from the patient falling, a mis-step by the patient, Mechanism of Injury: Unknown the patient can partially bear weight, the patient is able to ambulate, with mild difficulty. Onset: The symptoms/episode began/occurred suddenly, yesterday. Modifying factors: The symptoms are alleviated by nothing, the symptoms are aggravated by weight bearing, movement. Associated signs and symptoms: The patient has no apparent associated signs or symptoms. Severity of symptoms: At their worst the symptoms were mild, in the emergency department the symptoms are unchanged. The patient has not experienced similar symptoms in the past. The patient has not recently seen a physician. Patient indicates that he was walking to his garage yesterday and stumbled. During that process he somehow injured his foot. Is unclear exactly what happened to his foot but nonetheless it shows he regained his balance, he had significant pain in his left foot. Patient denies falling to the ground or any other injuries.. Historical: - Allergies: 09:23 PENICILLINS (rash); ap3 - Home Meds: 09:23 Altace 5 mg Oral cap 1 cap once daily [Active]; aspirin 81 mg Oral chew 1 tab once ap3 daily [Active]; Centrum 50+ daily [Active]; CoQ-10 100 mg Oral cap daily [Active]; krill oil 495-52-28-50 mg Oral cap daily [Active]; metoprolol tartrate 25 mg Oral tab 1 tab 2 times per day [Active]; Plavix 75 mg Oral tab 1 tab once daily [Active]; Super B Complex + C Oral daily [Active]; Tricor 145 mg Oral tab 1 tab once daily [Active]; nateglinide 60 mg oral tab 1 tab 3 times per day [Active]; - PMHx: 09:23 cardiac stents; CAD; Diabetes - NIDDM; Hyperlipidemia; Hypertension; ap3 - Immunization history:: Client reports receiving the 2nd dose of the Covid vaccine, and booster. - Social history:: Smoking status: Patient denies any tobacco usage or history of. ROS: 13:31 Constitutional: Negative for fever, chills, and weight loss, Eyes: Negative for injury, kdr pain, redness, and discharge, Neck: Negative for injury, pain, and swelling, Cardiovascular: Negative for chest pain, palpitations, and edema, Respiratory: Negative for shortness of breath, cough, wheezing, and pleuritic chest pain, Abdomen/GI: Negative for abdominal pain, nausea, vomiting, diarrhea, and constipation, Back: Negative for injury and pain, : Negative for injury, bleeding, discharge, and swelling, Skin: Negative for injury, rash, and discoloration, Neuro: Negative for headache, weakness, numbness, tingling, and seizure activity. Psych: Negative for depression, anxiety, suicide ideation, homicidal ideation, and hallucinations, Allergy/Immunology: Negative for hives, rash, and allergies, Endocrine: Negative for neck swelling, polydipsia, polyuria, polyphagia, and marked weight changes, Hematologic/Lymphatic: Negative for swollen nodes, abnormal bleeding, and unusual bruising. 13:31 MS/extremity: Positive for ecchymosis, erythema, pain, tenderness, warmth, of the lateral side of left foot and dorsum of left foot. Exam: 13:31 Constitutional: This is a well developed, well nourished patient who is awake, alert, kdr and in no acute distress. 13:31 Musculoskeletal/extremity: Extremities: ROM: intact in all extremities, Circulation is intact in all extremities. Sensation intact. Compartment Syndrome exam of affected extremity: is normal. no numbness. Vital Signs: 09:21 BP 155 / 72; Pulse 72; Resp 17; Temp 97.9; Pulse Ox 100% ; Weight 72.57 kg; Height 5 ap3 ft. 9 in. (175.26 cm); Pain 2/10; 10:14 BP 116 / 61; Pulse 65; Resp 15; Pulse Ox 100% ; Pain 8/10; eo2 11:00 BP 140 / 61; Pulse 63; Resp 15; Pulse Ox 100% ; Pain 6/10; eo2 09:21 Body Mass Index 23.63 (72.57 kg, 175.26 cm) ap3 MDM: 11:00 Patient medically screened. kdr 13:31 Data reviewed: vital signs, nurses notes, radiologic studies. Counseling: I had a kdr detailed discussion with the patient and/or guardian regarding: the historical points, exam findings, and any diagnostic results supporting the discharge/admit diagnosis, radiology results, the need for outpatient follow up. 05/22 09:43 Order name: Foot Left 3 View XRAY; Complete Time: 10:51 kdr 05/22 09:43 Order name: Bowen Wrap: left foot; Complete Time: 11:11 kdr Administered Medications: No medications were administered Disposition Summary: 05/22/21 11:00 Discharge Ordered Location: Home kdr Problem: new kdr Symptoms: have improved kdr Condition: Stable kdr Diagnosis - Other sprain of left foot kdr Followup: kdr - With: Donald Monzon MD - When: 2 - 3 days - Reason: If symptoms return, Further diagnostic work-up, Recheck today's complaints, Continuance of care, Re-evaluation by your physician Discharge Instructions: - Discharge Summary Sheet kdr - Foot Sprain kdr - Foot Contusion, [id number] kdr - Foot Pain kdr Forms: - Medication Reconciliation Form kdr - Thank You Letter kdr Signatures: Dispatcher [employer] EDMS Shawn Laughlin MD MD kdr Yanely Dubon RN RN ap3 Corrections: (The following items were deleted from the chart) 09: 09:23 Allergies: Codeine (rash); ap3 ap3
[2021-05-22 11:24] VITALS: TEMP 97.9; O2SAT 100
[2021-05-22 11:27] VITALS: BP 140/61
== END 2021-05-22 11:19 | disposition home or self-care (01) ==
LOC: ER 09:14
DX: S93.692A Other sprain of left foot, initial encounter (principal); W18.39XA Other fall on same level, initial encounter; I10 Essential (primary) hypertension; E11.9 Type 2 diabetes mellitus without complications; Z79.01 Long term (current) use of anticoagulants; Z79.82 Long term (current) use of aspirin; Z95.818 Presence of other cardiac implants and grafts; Z88.0 Allergy status to penicillin
CPT/HCPCS: 99283

== ENCOUNTER 2021-08-04 04:26 | Inpatient (IN) | payer OTHER ==
--- OUTSIDE RECORDS SUMMARY | 2021-08-04 04:29 | XMS REPORT | Continuity of Care Document ---
:1940 Author Organization [facility] t Address [address] [place] [address] Dr. Almanza [address] [place] [address] Care Team Providers Name Role Phone KIRK [...] Clinicians Facility Department ID 2021-05-07 2021-05-07 [facility] [id number] [address] [place] 00:00:00 00:00:00 [place] [address] 2021-04-23 2021-04-23 Outpatient [facility] [id number] [address] [place] 00:00:00 00:00:[address] 2021-04-20 2021-04-20 [facility] [id number] [address] [place] 00:00:00 00:00:00 [place] [address] 2020-10-17 2020-10-17 [facility] [id number] [address] [place] 00:00:00 00:00:00 [place] [address] 2020-10-07 2020-10-07 [facility] [id number] [address] [place] 00:00:00 00:00:00 GO [address] 2020-05-26 2020-05-26 Outpatient [facility] [id number] [address] [place] 00:00:00 00:00:[address] 2020-04-28 2020-04-28 Outpatient [facility] [id number] [address] [place] 00:00:00 00:00:[address] 2020-04-08 2020-04-08 [facility] [id number] [address] [place] 00:00:00 00:00:00 GO [address] 2020-03-27 2020-03-27 Outpatient [facility] [id number] [address] [place] 00:00:00 00:00:[address] 2019-12-27 2019-12-27 Outpatient [facility] [id number] [address] [place] 00:00:00 00:00:[address] 2019-09-27 2019-09-27 Outpatient [facility] [id number] [address] [place] 00:00:00 00:00:[address] 2019-07-24 2019-07-24 Outpatient LONG, [facility] [id number] [address] [place] 00:00:00 00:00:00 GO [address] 2019-07-23 2019-07-23 Outpatient LONG, [facility] [id number] [address] [place] 00:00:00 00:00:00 GO [address] 2019-07-18 2019-07-18 Outpatient RELEE ROSS [facility] [id number] [place] 00:00:00 00:00:[address] 2019-07-03 2019-07-09 Inpatient RELEE, ROSS [facility] [id number] [place] 00:00:00 00:00:[address] 2019-06-26 2019-06-26 Outpatient LETY, ROSS [facility] [id number] [place] 00:00:00 00:00:[address] 2019-06-13 2019-06-13 Outpatient LONG, [facility] [id number] [address] [place] 00:00:00 00:00:[address] GO [address] Results This patient has no known results.
[2021-08-04 04:51] LABS: Hematocrit 42.9 % (39.6-49.0); Lymphocytes % 16.6 % (15.3-44.8); MPV 7.1 fL (7.6-11.3); RBC Red Blood Cell Count 4.92 M/uL (4.33-5.43)
[2021-08-04 04:54] LABS: Protime INR 1.26
[2021-08-04 05:05] LABS: Magnesium 2.1 mg/dL (1.8-2.4); Potassium 4.2 mmol/L (3.5-5.1); Troponin High Sensitivity 12.3 pg/mL (<58.9)
[2021-08-04] MEDS ORDERED: ASPIRIN 81 MG CHEWABLE TABLET ONE (05:39)
--- NOTE | 2021-08-04 05:42 | EDPHYS ---
Physician Documentation [facility] Name: Yusef Boyle Age: 80 yrs Sex: Male : 1940 Arrival Date: 08/04/2021 Time: 04:37 Bed 7 Private MD: ED Physician Waqar Seymour HPI: 08/04 04:40 This 80 yrs old Male presents to ER via Unassigned with complaints of Weakness - Right mh7 Arm. 04:40 The patient presents to the emergency department with weakness of the right upper mh7 extremity, complete paralysis. Onset: The symptoms/episode began/occurred at an unknown time. Context: occurred at home, occurred while the patient was asleep. Associated signs and symptoms: Pertinent negatives: altered mental status, chills, dizziness, fever, headache, nausea, neck stiffness, paresthesias, seizure, syncope, near-syncope, blurred vision, double vision, visual field changes, loss of vision. Severity of symptoms: At their worst the symptoms were moderate today, in the emergency department the symptoms have resolved and did so just prior to arrival. Patient's baseline: Neuro: alert and fully oriented, Motor: no deficits, Ambulation: walks without assistance, Speech: normal. Current symptoms: Currently, the patient is not experiencing any symptoms, the patient feels back to baseline, no decreased level of consciousness, no confusion, no dysphasia, no headache, no paralysis, no visual changes. States that he awoke this morning \\T\\ 03:30 with right hand weakness. He was last known normal when he went to sleep \\T\\ 2230 last night. Symptoms have completely resolved prior to coming to the ER. He denies any other complaints.. Historical: - Allergies: 05:18 PENICILLINS (rash); lp1 - Home Meds: 05:18 Novolin 70/30 InnoLet Insulin 100 unit/mL (70-30) Sub-Q inpn [Active]; metoprolol lp1 tartrate 25 mg Oral tab 1 tab 2 times per day [Active]; aspirin 81 mg Oral chew 1 tab once daily [Active]; nateglinide 60 mg Oral tab 1 tab 3 times per day [Active]; Tricor 145 mg Oral tab 1 tab once daily [Active]; rosuvastatin 40 mg oral tab 1 tab once daily [Active]; Plavix 75 mg Oral tab 1 tab once daily [Active]; ramipril 5 mg Oral cap 1 cap once daily [Active]; - PMHx: 05:18 CAD; cardiac stents; Diabetes - NIDDM; Hyperlipidemia; Hypertension; lp1 - PSHx: 05:18 Heart stents; Tonsillectomy; Triple Bypass; lp1 - Immunization history:: Adult Immunizations up to date. - Social history:: Smoking status: Patient denies any tobacco usage or history of. ROS: 04:40 Constitutional: Negative for fever, chills, and weight loss, Eyes: Negative for injury, mh7 pain, redness, and discharge, ENT: Negative for injury, pain, and discharge, Neck: Negative for injury, pain, and swelling, Cardiovascular: Negative for chest pain, palpitations, and edema, Respiratory: Negative for shortness of breath, cough, wheezing, and pleuritic chest pain, Abdomen/GI: Negative for abdominal pain, nausea, vomiting, diarrhea, and constipation, Back: Negative for injury and pain, : Negative for injury, bleeding, discharge, and swelling, MS/Extremity: Negative for injury and deformity, Skin: Negative for injury, rash, and discoloration. 04:40 Psych: Negative for depression, anxiety, suicide ideation, homicidal ideation, and hallucinations, Allergy/Immunology: Negative for hives, rash, and allergies, Endocrine: Negative for neck swelling, polydipsia, polyuria, polyphagia, and marked weight changes, Hematologic/Lymphatic: Negative for swollen nodes, abnormal bleeding, and unusual bruising. 04:40 Neuro: Negative for altered mental status, dizziness, gait disturbance, headache, hearing loss, loss of consciousness, numbness, seizure activity, speech changes, syncope, near syncope, tingling, tinnitus, tremor, visual changes. Exam: 04:40 Constitutional: This is a well developed, well nourished patient who is awake, alert, mh7 and in no acute distress. Head/Face: Normocephalic, atraumatic. Eyes: Pupils equal round and reactive to light, extra-ocular motions intact. Lids and lashes normal. Conjunctiva and sclera are non-icteric and not injected. Cornea within normal limits. Periorbital areas with no swelling, redness, or edema. Neck: Trachea midline, no thyromegaly or masses palpated, and no cervical lymphadenopathy. Supple, full range of motion without nuchal rigidity, or vertebral point tenderness. No Meningismus. Chest/axilla: Normal chest wall appearance and motion. Nontender with no deformity. No lesions are appreciated. Cardiovascular: Regular rate and rhythm with a normal S1 and S2. No gallops, murmurs, or rubs. Normal PMI, no JVD. No pulse deficits. Respiratory: Lungs have equal breath sounds bilaterally, clear to auscultation and percussion. No rales, rhonchi or wheezes noted. No increased work of breathing, no retractions or nasal flaring. Abdomen/GI: Soft, non-tender, with normal bowel sounds. No distension or tympany. No guarding or rebound. No evidence of tenderness throughout. Back: No spinal tenderness. No costovertebral tenderness. Full range of motion. Skin: Warm, dry with normal turgor. Normal color with no rashes, no lesions, and no evidence of cellulitis. MS/ Extremity: Pulses equal, no cyanosis. Neurovascular intact. Full, normal range of motion. Psych: Awake, alert, with orientation to person, place and time. Behavior, mood, and affect are within normal limits. 04:40 Neuro: Orientation: is normal, Mentation: is normal, Memory: is normal, Cranial nerves: grossly normal, Cerebellar function: is grossly normal, Motor: is normal, Sensation: is normal, Gait: not tested. seizure activity, is not displayed by the patient, Abnormal movements: there are no abnormal movements. Vital Signs: 04:30 BP 139 / 71; Pulse 70; Resp 18; Temp 98.1(O); Pulse Ox 100% on R/A; Weight 72.57 kg lp1 (R); Height 5 ft. 9 in. (175.26 cm); Pain 0/10; 05:30 BP 124 / 75; Pulse 66; Resp 19; Pulse Ox 99% on R/A; lp1 06:37 BP 110 / 73; Pulse 61; Resp 16; Pulse Ox 98% on R/A; Pain 0/10; lp1 04:30 Body Mass Index 23.63 (72.57 kg, 175.26 cm) lp1 NIH Stroke Scale Scores: 04:40 NIHSS Score: 0 mh7 05:00 NIHSS Score: 0 lp1 05:00 NIHSS Score: 1 lp1 MDM: 05:38 Data reviewed: vital signs, nurses notes, EMS record, old medical records, lab test [facility] result(s), cardiac enzymes, CBC, electrolytes, EKG, radiologic studies, CT scan, plain films. Data interpreted: Pulse oximetry: on room air is 100 %. Interpretation: normal. Counseling: I had a detailed discussion with the patient and/or guardian regarding: the historical points, exam findings, and any diagnostic results supporting the discharge/admit diagnosis, the presence of at least one elevated blood pressure reading (>120/80) during this emergency department visit, lab results, radiology results, the need for further work-up and treatment in the hospital. Response to treatment: the patient's symptoms have resolved after treatment, the patient's blood pressure is in an acceptable range, mental status has returned to baseline, the patient no longer shows bradycardia, the patient is not short of breath, the patient is not tachycardic, the patient's pain is gone, the patient's temperature has normalized. Physician consultation: Kumar Guzman MD was contacted at 05:20, regarding patient's condition, would like admission per Dr. Donald Monzon MD. 05:38 ED course: Well appearing, NAD, VSS, no focal neurological deficits. Discussed with Dr. michael Guzman recommended admission for MRI/MRA brain. Patient not TPA candidate due to unknown time of symptom onset, last known well was 2230 last night. Also, symptoms resolved prior to arrival to ED.. 05:42 Patient medically screened. [facility] 08/04 04:39 Order name: Basic Metabolic Panel; Complete Time: 05:21 [facility] 08/04 04:39 Order name: CBC with Diff; Complete Time: 05:21 08/04 04:39 Order name: Magnesium; Complete Time: 05:21 08/04 04:39 Order name: Protime (+inr); Complete Time: 05:21 [facility] 08/04 04:39 Order name: Ptt, Activated; Complete Time: 05:21 08/04 04:39 Order name: Troponin High Sensitivity; Complete Time: 05:21 08/04 04:40 Order name: COVID-19 SARS RT PCR (Document "Date of Onset" if Symptomatic); Complete [facility] Time: 05:08/04 04:49 Order name: Glucose, Ancillary Testing; Complete Time: 05:21 [facility] 08/04 05:56 Order name: CKMB Creatine Kinase MB [facility] 08/04 05:56 Order name: CKMB Creatine Kinase MB [facility] 08/04 05:56 Order name: Creatine Phosphokinase [facility] 08/04 05:56 Order name: Creatine Phosphokinase [facility] 08/04 05:56 Order name: Lipid Profile [facility] 08/04 05:56 Order name: Lipid Profile [facility] 08/04 04:39 Order name: CT Stroke Brain w/o Contrast [facility] 08/04 04:39 Order name: Stroke CXR 1 View [facility] 08/04 04:39 Order name: EKG; Complete Time: 04:39 [facility] 08/04 05:56 Order name: CONS Physician Consult [facility] 08/04 05:56 Order name: NPO [facility] 08/04 05:56 Order name: Brain Wo Cont [facility] 08/04 05:56 Order name: MRA Head Wo Cont [facility] 08/04 05:56 Order name: MRA Neck Without Cont [facility] 08/04 09:05 Order name: MRI [facility] 08/04 09:08 Order name: MRI [facility] 08/04 13:01 Order name: Glucose, Ancillary Testing [facility] 08/04 16:54 Order name: Glucose, Ancillary Testing [facility] 08/04 20:48 Order name: Glucose, Ancillary Testing [facility] 08/04 04:39 Order name: Accucheck; Complete Time: 04:48 [facility] 08/04 04:39 Order name: Cardiac monitoring; Complete Time: 04:48 [facility] 08/04 04:39 Order name: EKG - Nurse/Tech; Complete Time: 05:15 [facility] 08/04 04:39 Order name: IV Saline Lock; Complete Time: 04:48 08/04 04:39 Order name: Labs collected and sent; Complete Time: 04:48 [facility] 08/04 04:39 Order name: NPO; Complete Time: 04:48 [facility] 08/04 04:39 Order name: O2 Per Protocol; Complete Time: 04:48 [facility] 08/04 04:39 Order name: O2 Sat Monitoring; Complete Time: 04:48 [facility] 08/04 04:39 Order name: Stroke Swallow Screen; Complete Time: 05:15 [facility] 08/04 05:56 Order name: NPO [facility] 08/04 05:56 Order name: NPO EDMS Administered Medications: 05:36 Drug: Aspirin Chewable Tablet 324 mg Route: PO; lp1 06:38 Follow up: Response: No adverse reaction lp1 Point of Care Testing: Blood Glucose: 04:38 Blood Glucose: 107 mg/dL; lp1 16:42 Blood Glucose: 219 mg/dL; jl7 Ranges: Critical Glucose Levels:Adult <50 mg/dl or >400 mg/dl <40 mg/dl or >180 mg/dl Disposition Summary: 08/04/21 05:42 Hospitalization Ordered Hospitalization Status: Inpatient Admission [facility] Provider: Donald Monzon Arturo Condition: Stable [facility] Problem: new [facility] Symptoms: have improved [facility] Bed/Room Type: Standard [facility] Location: Intensive Care Unit(08/04/21 23:37) nv1 Room Assignment: 6-(08/04/21 23:37) [facility] Diagnosis - Weakness - Right hand, possible stroke [facility] Forms: - Medication Reconciliation Form [facility] - SBAR form [facility] NIH Stroke Scale - NIH Stroke Score Date: 08/04/2021 Time: 04:40 Total Score = 0 1a. Level of Consciousness (LOC) - 0(Alert) 1b. Level of Consciousness (LOC) (Month \\T\\ Age) - 0(Both) 1c. LOC Commands (Open \\T\\ Closes Eyes/Net Developer Programmer) - 0(Both) 2. Best Gaze (Lateral Gaze Paresis) - 0(Normal) 3. Visual Field Loss - 0(No visual loss) 4. Facial Palsy - 0(Normal) 5a. Left Arm: Motor (10-second hold) - 0(No drift) 5b. Right Arm: Motor (10-second hold) - 0(No drift) 6a. Left Leg: Motor (5-second hold - always test supine) - 0(No drift) 6b. Right Leg: Motor (5-second hold - always test supine) - 0(No drift) 7. Limb Ataxia (finger/nose \\T\\ heel/horton - test with eyes open) - 0(Absent) 8. Sensory Loss (pinprick arms/legs/face) - 0(Normal) 9. Best Language: Aphasia (description/naming/reading) - 0(No aphasia) 10. Dysarthria (speech clarity - read or repeat words) - 0(Normal) 11. Extinction and Inattention (visual/tactile/auditory/spatial/personal) - 0(No abnormality) Initials: mh7 NIH Stroke Scale - NIH Stroke Score Date: 08/04/2021 Time: 05:00 Total Score = 0 1a. Level of Consciousness (LOC) - 0(Alert) 1b. Level of Consciousness (LOC) (Month \\T\\ Age) - 0(Both) 1c. LOC Commands (Open \\T\\ Closes Eyes/Net Developer Programmer) - 0(Both) 2. Best Gaze (Lateral Gaze Paresis) - 0(Normal) 3. Visual Field Loss - 0(No visual loss) 4. Facial Palsy - 0(Normal) 5a. Left Arm: Motor (10-second hold) - 0(No drift) 5b. Right Arm: Motor (10-second hold) - 0(No drift) 6a. Left Leg: Motor (5-second hold - always test supine) - 0(No drift) 6b. Right Leg: Motor (5-second hold - always test supine) - 0(No drift) 7. Limb Ataxia (finger/nose \\T\\ heel/hortno - test with eyes open) - 0(Absent) 8. Sensory Loss (pinprick arms/legs/face) - 0(Normal) 9. Best Language: Aphasia (description/naming/reading) - 0(No aphasia) 10. Dysarthria (speech clarity - read or repeat words) - 0(Normal) 11. Extinction and Inattention (visual/tactile/auditory/spatial/personal) - 0(No abnormality) Initials: lp1 NIH Stroke Scale - NIH Stroke Score Date: 08/04/2021 Time: 05:00 Total Score = 1 1a. Level of Consciousness (LOC) - 0(Alert) 1b. Level of Consciousness (LOC) (Month \\T\\ Age) - 0(Both) 1c. LOC Commands (Open \\T\\ Closes Eyes/Net Developer Programmer) - 0(Both) 2. Best Gaze (Lateral Gaze Paresis) - 0(Normal) 3. Visual Field Loss - 0(No visual loss) 4. Facial Palsy - 0(Normal) 5a. Left Arm: Motor (10-second hold) - 0(No drift) 5b. Right Arm: Motor (10-second hold) - 0(No drift) 6a. Left Leg: Motor (5-second hold - always test supine) - 0(No drift) 6b. Right Leg: Motor (5-second hold - always test supine) - 0(No drift) 7. Limb Ataxia (finger/nose \\T\\ heel/horton - test with eyes open) - 0(Absent) 8. Sensory Loss (pinprick arms/legs/face) - 1(Mild to moderate loss) 9. Best Language: Aphasia (description/naming/reading) - 0(No aphasia) 10. Dysarthria (speech clarity - read or repeat words) - 0(Normal) 11. Extinction and Inattention (visual/tactile/auditory/spatial/personal) - 0(No abnormality) Initials: lp1 Signatures: Dispatcher [employer] EDMS Nuha Carey RN RN Maddison Davalos RN RN 1 Augusto Morataya, DIABETES CLINICAL MANAGER-C DIABETES CLINICAL MANAGER-[facility]1 Waqar Seymour MD MD 7 Corrections: (The following items were deleted from the chart) 05:50 05:42 Telemetry/MedSurg (Inpatient) [facility] 05:50 05:42 [facility] 23:37 05:50 [facility] ER HOLD la1 23:37 05:50 ERHOLD- mw la1
--- NOTE | 2021-08-04 05:42 | ER ---
Nurse's Notes [facility] Name: Yusef Boyle Age: 80 yrs Sex: Male : 1940 Arrival Date: 08/04/2021 Time: 04:37 Bed 7 Private MD: Diagnosis: Weakness-Right hand, possible stroke Presentation: 08/04 04:30 Acuity: BARBARA 2 lp1 04:30 Chief complaint: EMS states: Called for patient with right arm weakness, unable to make lp1 closed fist, sensation disturbance to right arm; Per EMS, no other deficits; Patient woke up at 0330, went to bed at 2230 last night. 04:30 Coronavirus screen: At this time, the client does not indicate any symptoms associated lp1 with coronavirus-19. Ebola Screen: No symptoms or risks identified at this time. The patients blood glucose was checked before arriving to the hospital and was found to be normal. Initial Sepsis Screen: Does the patient meet any 2 criteria? No. Patient's initial sepsis screen is negative. Does the patient have a suspected source of infection? No. Patient's initial sepsis screen is negative. Risk Assessment: Do you want to hurt yourself or someone else? Patient reports no desire to harm self or others. Onset of symptoms was August 04, 2021. Care prior to arrival: IV initiated. 18 GA, in the right antecubital area, Glucose check: 108. 04:30 Method Of Arrival: EMS: [facility] Historical: - Allergies: 05:18 PENICILLINS (rash); lp1 - Home Meds: 05:18 Novolin 70/30 InnoLet Insulin 100 unit/mL (70-30) Sub-Q inpn [Active]; metoprolol lp1 tartrate 25 mg Oral tab 1 tab 2 times per day [Active]; aspirin 81 mg Oral chew 1 tab once daily [Active]; nateglinide 60 mg Oral tab 1 tab 3 times per day [Active]; Tricor 145 mg Oral tab 1 tab once daily [Active]; rosuvastatin 40 mg oral tab 1 tab once daily [Active]; Plavix 75 mg Oral tab 1 tab once daily [Active]; ramipril 5 mg Oral cap 1 cap once daily [Active]; - PMHx: 05:18 CAD; cardiac stents; Diabetes - NIDDM; Hyperlipidemia; Hypertension; lp1 - PSHx: 05:18 Heart stents; Tonsillectomy; Triple Bypass; lp1 - Immunization history:: Adult Immunizations up to date. - Social history:: Smoking status: Patient denies any tobacco usage or history of. Screenin:00 VAN Screening: Arm Drift: Patient shows no arm weakness. Patient is VAN negative. lp1 Patient has been NPO before screening. The patient is alert, able to follow commands. The patient does not exhibit slurred or garbled speech The patient is not exhibiting difficulty speaking. The patient does not exhibit difficulty understanding words. The patient is able to swallow own secretions with no drooling or need for suction. Patient tolerated one teaspoon of water. No drooling, immediate coughing, gurgling, or clearing of the throat was noted. The patient tolerated 90mL of water. No drooling, immediate coughing, gurgling, or clearing of the throat was noted. The patient passed the bedside swallow screening. Oral medications may be given as ordered. Contact Physician for further diet orders. Provider notified of bedside swallow screening results: Waqar Seymour MD. 05:15 Abuse screen: Denies threats or abuse. Denies injuries from another. Nutritional lp1 screening: No deficits noted. Tuberculosis screening: No symptoms or risk factors identified. Fall Risk None identified. Assessment: 05:00 VAN Scoring: Arm Drift: Patients demonstrates NO arm weakness. Patient is VAN Negative. lp1 General: Appears in no apparent distress. Behavior is calm, cooperative, appropriate for age. Pain: Denies pain. Neuro: Level of Consciousness is awake, alert, obeys commands, Oriented to person, place, time, situation, Moves all extremities. Full function Reports paresthesias in right hand and right arm. Cardiovascular: Patient's skin is warm and dry. Rhythm is sinus rhythm. Respiratory: Respiratory effort is even, unlabored. GI: No signs and/or symptoms were reported involving the gastrointestinal system. : No signs and/or symptoms were reported regarding the genitourinary system. EENT: No signs and/or symptoms were reported regarding the EENT system. Derm: Skin is pink, warm \T\ dry. Musculoskeletal: No deficits noted. 06:15 Reassessment: Patient appears in no apparent distress at this time. Patient is alert, lp1 oriented x 3, equal unlabored respirations, skin warm/dry/pink. patient aware of possible admission, pending results. Vital Signs: 04:30 BP 139 / 71; Pulse 70; Resp 18; Temp 98.1(O); Pulse Ox 100% on R/A; Weight 72.57 kg lp1 (R); Height 5 ft. 9 in. (175.26 cm); Pain 0/10; 05:30 BP 124 / 75; Pulse 66; Resp 19; Pulse Ox 99% on R/A; lp1 06:37 BP 110 / 73; Pulse 61; Resp 16; Pulse Ox 98% on R/A; Pain 0/10; lp1 04:30 Body Mass Index 23.63 (72.57 kg, 175.26 cm) lp1 NIH Stroke Scale Scores: 04:40 NIHSS Score: 0 mh7 05:00 NIHSS Score: 0 lp1 05:00 NIHSS Score: 1 lp1 ED Course: 04:35 Maintain EMS IV. Dressing intact. Good blood return noted. Site clean \T\ dry. Gauge \T\ lp 1 site: 18g to R AC. 04:37 Patient arrived in ED. lp1 04:38 Waqar Seymour MD is Attending Physician. mh7 04:38 Triage completed. lp1 04:45 Patient has correct armband on for positive identification. Placed in gown. Bed in low lp1 position. Call light in reach. monitoring manager on. Pulse ox on. NIBP on. 04:48 Maddison Davalos RN is Primary Nurse. lp1 04:48 Arm band placed on left wrist. lp1 04:49 CT Stroke Brain w/o Contrast In Process Unspecified. EDMS 04:52 Stroke CXR 1 View In Process Unspecified. EDMS 05:40 Donald Monzon MD is Hospitalizing Provider. mh7 Administered Medications: 05:36 Drug: Aspirin Chewable Tablet 324 mg Route: PO; lp1 06:38 Follow up: Response: No adverse reaction lp1 Point of Care Testing: Blood Glucose: 04:38 Blood Glucose: 107 mg/dL; lp1 16:42 Blood Glucose: 219 mg/dL; jl7 Ranges: Outcome: 05:42 Decision to Hospitalize by Provider. mh7 06:49 Admitted to ER Hold. Please see [facility] for further documentation. lp1 06:49 Condition: stable 06:49 Instructed on the need for admit. 08/05 00:54 Patient left the ED. lp1 NIH Stroke Scale - NIH Stroke Score Date: 08/04/2021 Time: 04:40 Total Score = 0 1a. Level of Consciousness (LOC) - 0(Alert) 1b. Level of Consciousness (LOC) (Month \T\ Age) - 0(Both) 1c. LOC Commands (Open \T\ Closes Eyes/Clinical Partner) - 0(Both) 2. Best Gaze (Lateral Gaze Paresis) - 0(Normal) 3. Visual Field Loss - 0(No visual loss) 4. Facial Palsy - 0(Normal) 5a. Left Arm: Motor (10-second hold) - 0(No drift) 5b. Right Arm: Motor (10-second hold) - 0(No drift) 6a. Left Leg: Motor (5-second hold - always test supine) - 0(No drift) 6b. Right Leg: Motor (5-second hold - always test supine) - 0(No drift) 7. Limb Ataxia (finger/nose \T\ heel/horton - test with eyes open) - 0(Absent) 8. Sensory Loss (pinprick arms/legs/face) - 0(Normal) 9. Best Language: Aphasia (description/naming/reading) - 0(No aphasia) 10. Dysarthria (speech clarity - read or repeat words) - 0(Normal) 11. Extinction and Inattention (visual/tactile/auditory/spatial/personal) - 0(No abnormality) Initials: 7 NIH Stroke Scale - NIH Stroke Score Date: 08/04/2021 Time: 05:00 Total Score = 0 1a. Level of Consciousness (LOC) - 0(Alert) 1b. Level of Consciousness (LOC) (Month \T\ Age) - 0(Both) 1c. LOC Commands (Open \T\ Closes Eyes/Clinical Partner) - 0(Both) 2. Best Gaze (Lateral Gaze Paresis) - 0(Normal) 3. Visual Field Loss - 0(No visual loss) 4. Facial Palsy - 0(Normal) 5a. Left Arm: Motor (10-second hold) - 0(No drift) 5b. Right Arm: Motor (10-second hold) - 0(No drift) 6a. Left Leg: Motor (5-second hold - always test supine) - 0(No drift) 6b. Right Leg: Motor (5-second hold - always test supine) - 0(No drift) 7. Limb Ataxia (finger/nose \T\ heel/hortno - test with eyes open) - 0(Absent) 8. Sensory Loss (pinprick arms/legs/face) - 0(Normal) 9. Best Language: Aphasia (description/naming/reading) - 0(No aphasia) 10. Dysarthria (speech clarity - read or repeat words) - 0(Normal) 11. Extinction and Inattention (visual/tactile/auditory/spatial/personal) - 0(No abnormality) Initials: lp1 NIH Stroke Scale - NIH Stroke Score Date: 08/04/2021 Time: 05:00 Total Score = 1 1a. Level of Consciousness (LOC) - 0(Alert) 1b. Level of Consciousness (LOC) (Month \T\ Age) - 0(Both) 1c. LOC Commands (Open \T\ Closes Eyes/Clinical Partner) - 0(Both) 2. Best Gaze (Lateral Gaze Paresis) - 0(Normal) 3. Visual Field Loss - 0(No visual loss) 4. Facial Palsy - 0(Normal) 5a. Left Arm: Motor (10-second hold) - 0(No drift) 5b. Right Arm: Motor (10-second hold) - 0(No drift) 6a. Left Leg: Motor (5-second hold - always test supine) - 0(No drift) 6b. Right Leg: Motor (5-second hold - always test supine) - 0(No drift) 7. Limb Ataxia (finger/nose \T\ heel/horton - test with eyes open) - 0(Absent) 8. Sensory Loss (pinprick arms/legs/face) - 1(Mild to moderate loss) 9. Best Language: Aphasia (description/naming/reading) - 0(No aphasia) 10. Dysarthria (speech clarity - read or repeat words) - 0(Normal) 11. Extinction and Inattention (visual/tactile/auditory/spatial/personal) - 0(No abnormality) Initials: lp1 Signatures: Dispatcher [employer] EDMS Maddison Davalos RN RN lp1 Dev Powell RN RN jl7 Waqar Seymour MD MD 7
[2021-08-04] MEDS ORDERED: METOPROLOL TAR 25 MG TAB PO SCH (06:00)
[2021-08-04] MEDS: INSULIN -REGULAR HUMAN 50 UNIT/0.5 ML ML SQ SCH ×4 (07:30→20:41)
[2021-08-04] MEDS ORDERED: CLOPIDOGREL 75 MG TABLET PO SCH (09:00)
--- NOTE | 2021-08-04 09:04 | RAD REPORT ---
EXAM DESCRIPTION: MRI - Brain W/Wo Cont - 08/04/2021 8:48 am CLINICAL HISTORY: Right hand weakness, possible stroke COMPARISON: MRA Head Wo Cont dated 08/04/2021; Ct Stroke Brain Wo Cont dated 08/04/2021 TECHNIQUE: Sagittal T1-weighted images were obtained along with PD/heavily T2-weighted and T2-FLAIR images. Axial DWI and ADC mapping sequences were also obtained along with coronal heavily T2-weighted images were obtained. Post contrast enhanced images were obtained. FINDINGS: Several small cortical and subcortical infarcts present within the high left frontal and l eft parietal lobe. No mass effect or midline shift. No abnormal enhancement. No extra-axial fluid col lections. No significant white matter disease. No abnormal enhancement. No mastoid effusion.Paranasal sinuses are clear. IMPRESSION: Small punctate cortical and subcortical infarcts in the left posterior frontal and left parietal lobes. No abnormal enhancement.
--- NOTE | 2021-08-04 09:05 | RAD REPORT ---
EXAM DESCRIPTION: MRI - MRA Head Wo Cont - 08/04/2021 8:48 am CLINICAL HISTORY: Right hand weakness, possible stroke CVA COMPARISON: No comparisons FINDINGS: 3D noncontrast [id number] MR angiography of the la post[place] of [place] was performed. No aneurysm, flow-limiting stenosis or vascular malformation is seen. Left dominant vertebral artery. The visualized dural venous sinuses appear patent. IMPRESSION: No significant flow abnormality of the la posta of Hu is identified.
--- NOTE | 2021-08-04 09:07 | RAD REPORT ---
EXAM DESCRIPTION: MRI - MRA Neck W/Wo Cont - 08/04/2021 8:48 am CLINICAL HISTORY: Right hand weakness, possible stroke COMPARISON: No comparisons FINDINGS: Contrast enhance 2D [id number] MR angiography of the neck vessels was performed. The bilateral carotid systems are widely patent. The vertebral arteries are widely patent. Normal thr ee-vessel arch. IMPRESSION: No hemodynamically significant stenosis or dissection identified in the neck.
[2021-08-04] MEDS ORDERED: CLOPIDOGREL 75 MG TABLET ONE (10:37)
[2021-08-04] MEDS ORDERED: ASPIRIN EC 81 MG TAB PO ONE (10:37)
[2021-08-04] MEDS ORDERED: NA CHLORIDE 0.9% 0 ML ONE (10:37)
[2021-08-04] MEDS: NA CHLORIDE 0.9% 1,000 ML IV SCH (10:45)
[2021-08-04] MEDS: ASPIRIN EC 81 MG TAB PO SCH (10:45)
[2021-08-04] MEDS ORDERED: NA CHLORIDE 0.9% 500 ML IV ONE (11:00)
--- NOTE | 2021-08-04 12:28 | RAD REPORT ---
EXAM DESCRIPTION: CT - Ct Stroke Brain Wo Cont - 08/04/2021 7:01 am ADDENDUM #1 THIS REPORT CONTAINS FINDINGS THAT MAY BE CRITICAL TO PATIENT CARE: The findings were verbally discus sed via telephone conference with Waqar Seymour MD on 08/04/2021 at 5:08 AM CDT. Electronically signed by: Jeronimo Stearns MD 08/04/2021 5:08 AM CDT End of Addendum EXAM DESCRIPTION: Ct Stroke Brain Wo Cont CLINICAL HISTORY: 80 years Male WEAKNESS TECHNIQUE: Axial noncontrast CT head with coronal and sagittal reformats. All CT scans at this facil ity use dose modulation, iterative reconstruction, and/or weight based dosing when appropriate to red uce radiation dose to as low as reasonably achievable. COMPARISON: None. FINDINGS: Brain: Parenchymal volume loss. Chronic small vessel disease. No obvious large acute ijeoma torial infarction. No intracranial hemorrhage, midline shift, mass or mass effect. Ventricles: No hydrocephalus. Orbits: Unremarkable. Sinuses: Visualized portions are clear. Mastoid: Clear. Osseous: Unremarkable. Soft tissues: Unremarkable. IMPRESSION: No acute CT abnormality. Electronically signed by: Jeronimo Stearns MD 08/04/2021 5:00 AM CDT Due to temporary technical issues with the PACS/Fluency reporting system, reports are being signed by the in house radiologists without review as a courtesy to insure prompt reporting. The interpreting radiologist is fully responsible for the content of the report.
--- NOTE | 2021-08-04 12:33 | RAD REPORT ---
EXAM DESCRIPTION: RAD - Chest Single View - 08/04/2021 4:50 am CLINICAL HISTORY: 80 years Male, weakness COMPARISON: None. FINDINGS: Cardiomediastinal silhouette is normal. No focal consolidation, pneumothorax or pleural effusion. Status post median sternotomy. IMPRESSION: No acute findings. Electronically signed by: Jeronimo Stearns MD 08/04/2021 5:44 AM CDT Due to temporary technical issues with the PACS/Fluency reporting system, reports are being signed by the in house radiologists without review as a courtesy to insure prompt reporting. The interpreting radiologist is fully responsible for the content of the report.
[2021-08-04] MEDS ORDERED: NA CHLORIDE 0.9% 1,000 ML ONE ×2 (15:26→20:19)
[2021-08-04] MEDS ORDERED: NA CHLORIDE 0.9% 500 ML IV PRN ×2 (15:35→17:59)
[2021-08-04] MEDS ORDERED: INSULIN -REGULAR HUMAN 50 UNIT/0.5 ML ML ONE (17:46)
[2021-08-04] MEDS: APIXABAN 2.5 MG TABLET PO SCH (20:42)
--- NOTE | 2021-08-04 23:15 | CON ---
Reason For Consultation: Consultation called because of a new stroke. History Of Present Illness: Mr. Boyle is a 80-year-old right-handed patient with hyperten rodolfo, diabetes mellitus, dyslipidemia, and coronary artery disease, who has been on Plavix 75 mg manuel y and was in usual state of health until around 2 days ago when he began having some difficulty off a nd on to the right arm; however, it became more difficult to move when he woke up around 0330 on 07/24, which is today. Went to bed and was normal at 2230 on 08/03/2021. His right hand had little dexterity and is weak. His face did not show any significant abnormalities. Right leg was somewhat weak as well. Then, he got to [facility]; it was around 0437 and his evaluation showed a n ear complete resolution of his symptoms. He actually had an NIH Stroke Scale of 0 at the time. His head CT scan showed no acute ischemic or hemorrhagic change. However, subsequently the patient did d evelop worsening weakness on the right side. Around 5:00 a.m., he did develop some more weakness in the right arm, giving him an NIH Stroke Scale of 1. He subsequently had a brain MRI, which was done at 8:48 a.m. and that study showed several small punctate cortical and subcortical infarcts in the le ft posterior frontal and left parietal lobes. The MRA of his head and neck were unremarkable, comple tely open. There was no area of occlusion within the brain and the carotids. He has not had an echo cardiogram. It should be noted that the patient went to bed, was last known well the night before an d woke up with symptoms that were fluctuating. Therefore, he was not felt to be a tPA candidate at a ny time because he was well beyond a 4-1/2 hour window for any tPA. His medication regimen was optim ized, aspirin, Plavix, folic acid, statin. He was given a bolus of IV fluid and he said his symptoms have largely resolved. He thinks he is maybe 90 plus to 95% back to normal. On further questioning , the patient does say he has had a history of atrial fibrillation in the past, and has had recent ep isodes of his heart feeling funny, especially when lying down, but he had a very recent workup that d id not show atrial fibrillation. That workup was a short-term EKG. He is scheduled to see his [facility] o[facility]. Past Medical History: Coronary artery disease, status post cardiac stents; noninsulin-dependent diab etes mellitus; hypertension; dyslipidemia. Surgical History: Cardiac stents, tonsillectomy, triple cardiac bypass surgery. Allergies: PENICILLIN, CODEINE. Medications: 1.He is on Novolin 70/30. 2.Metoprolol 25 mg twice daily. 3.Aspirin 81 mg daily. 4.TriCor 145 mg daily. 5.Rosuvastatin 40 mg daily. 6.Plavix 75 mg daily. 7.Ramipril 5 mg daily. Social History: Denies alcohol, tobacco, or IV drug use. Review of Systems: He has had no recent fevers, chills, nausea, vomiting, myalgias, arthralgias, rash, headache, weight change, psychiatric complaints, gastrointestinal/genitourinary issues. Physical Examination: Vital Signs: Blood pressure 132/74, pulse 68, respiratory rate 15, temperature 97.8, oxygen saturati on 96% room air. Weight 106 pounds, height 5 feet 9 inches, BMI 23.6. General: Mr. Bolye is resting comfortably in the emergency room bed. He is in no acute distress. HEENT: He is normocephalic, atraumatic. Sclerae anicteric. Oropharynx is moist and pink. Neck: Supple. Chest: Clear. Heart: Regular. Extremities: Show no clubbing, cyanosis, or edema. Neurological: He is alert and oriented to person, place, time, situation. He has no expressive or r eceptive aphasias. Cranial nerves show no focal deficits from 2 through 12. Motor examination, unab le to elicit weakness in the right upper and lower extremities, and left side has full strength 5/5. Sensation intact in the right and left upper and lower extremities. Coordination intact in the lowe r extremities. The patient will be ambulated with Physical Therapy. Laboratory Studies: Complete blood count with differential is essentially unremarkable. Coagulation panel, INR 1.26. Chemistries show creatinine elevated 1.52, glucose ranged from 106 to 219. Magnes ium 2.1, calcium 9.4. COVID-19 test is negative. Assessment: Mr. Boyle is a 80-year-old patient with multiple stroke risk factors, including coronar y artery disease, status post multiple stents, coronary artery bypass grafting; hypertension; dyslipi demia; diabetes mellitus, who comes in with right arm and leg weakness. He does have multiple small, likely cardioembolic infarcts in the middle cerebral artery territory on the left; however, all of t he intracranial and extracranial arteries examined are completely open. It is possible he has had a cardioembolic stroke because of atrial fibrillation with clot formation and clot fragmentation, which lead to the strokes. However, there are no strokes noted on the right hemisphere; on the left, prod ucing his right-sided symptoms. Plan: 1.Recommend Eliquis 2.5 mg twice daily along with aspirin 81 mg daily. 2.He may benefit from full anticoagulation once evaluated by Cardiology, including his cardiac monit oring is appropriate. 3.Continue with some permissive hypertension over the next 3 days to 5 days. 4.Folic acid 1 mg daily. 5.Dyslipidemia medication, Rosuvastatin. Continue as indicated. 6.He may still benefit from some aggressive outpatient physical therapy. 7.May follow up in Dr. Guzman's clinic 1 month later. LEE ANN/EDISON Voice ID: [id number] Report ID: [id number]
[2021-08-05] MEDS: NA CHLORIDE 0.9% 1,000 ML IV SCH ×3 (03:46→18:14)
[2021-08-05 05:19] LABS: CKMB Creatine Kinase MB 2.1 ng/mL (1.0-3.6)
[2021-08-05] MEDS: INSULIN -REGULAR HUMAN 50 UNIT/0.5 ML ML SQ SCH ×4 (07:30→20:59)
[2021-08-05] MEDS: APIXABAN 2.5 MG TABLET PO SCH (08:47)
[2021-08-05] MEDS: ASPIRIN EC 81 MG TAB PO SCH (08:47)
--- NOTE | 2021-08-05 11:02 | EKG ---
Test Date: 2021-08-04 Test Time: 04:58:09 Manager Trainee: FAN MEASUREMENT RESULTS: Intervals: Rate: 64 IL: 160 QRSD: 86 QT: 408 QTc: 420 Ovalo: P: 31 IL: 160 QRS: 27 T: 29 INTERPRETIVE STATEMENTS: Normal sinus rhythm Normal ECG Compared to ECG 09/02/2016 09:18:35 No significant changes Electronically Signed On 08-05-21 10:57:37 CDT by Tacho Kerr
--- NOTE | 2021-08-05 14:47 | RAD REPORT ---
EXAM DESCRIPTION: CT - Ct Stroke Brain Wo Cont - 08/05/2021 2:41 pm CLINICAL HISTORY: Right sided weakness/Numbness; HX of infarct COMPARISON: Ct Stroke Brain Wo Cont dated 08/04/2021; Head Brain Wo Cont dated 09/02/2016; Brain W/Wo Cont dated 08/04/2021 TECHNIQUE: All CT scans are performed using dose optimization technique as appropriate and may inclu de automated exposure control or mA/KV adjustment according to patient size. FINDINGS: No intracranial hemorrhage, hydrocephalus or extra-axial fluid collection.No areas of brai n edema or evidence of midline shift. The paranasal sinuses and mastoids are clear. The calvarium is intact. IMPRESSION: No acute intracranial abnormality. Infarcts identified on the brain MRI from 08/04/2021 are likely too small to be resolved by CT. Findings conveyed to Dr. Monzon by Dr. Valle via [employer] at 1441 on 08/05/21
--- NOTE | 2021-08-05 15:08 | P.PN ---
Date of Service: 08/05/21 Acute Event Note - Code Stroke Code stroke called on patient (08/05) @ 7989 Neurologist termite control service representative, Dr. Guzman was informed. RN unable to get a hold of attending, Dr. Monzon, so I was called to evaluate patient. Reason for code stroke: sudden onset of right finger/hand numbness/tingling that progressed over ~5 minutes up his arm and affected his right lower face as well. Symptoms resolved within ~10 minutes. No residual symptoms reported by patient. Patient immediately taken to CT scan which resulted negative for acute process, did not visualize small infarcts seen on recent MRI. At time of my evaluation (4383) patient was back to baseline. NIHSS: 0 on my exam. No focal neurologic findings on exam. BP: 140-150s/50-60s, HR: 70s, SpO2: 100% on room air. Blood Glucose: 113 A/P: possible TIA vs extension of recent CVA. Similar symptoms as recent pre sentation. On statin/low dose eliquis already. symptoms resolved already, MRA with patent vasculature. High risk for bleed if given thrombolytic. may benefit from increasing dose of eliquis, JOHN to eval source of CVA. bedside swallow updated Dr. Monzon, who will further discuss with Dr. Guzman
[2021-08-05 15:22] LABS: Hematocrit 42.8 % (39.6-49.0); Lymphocytes % 17.1 % (15.3-44.8); RBC Red Blood Cell Count 4.87 M/uL (4.33-5.43)
[2021-08-05 15:29] LABS: Potassium 4.3 mmol/L (3.5-5.1)
[2021-08-05 15:34] LABS: Protime INR 1.56
[2021-08-05] MEDS ORDERED: HYDROCORTISONE NA SUC IV ONE (17:00)
[2021-08-05] MEDS ORDERED: NA CHLORIDE 0.9% IV ONE (17:00)
[2021-08-05] MEDS ORDERED: NOREPINEPHRINE 4 MG in D5W 250 ML IV SCH (17:00)
[2021-08-05] MEDS: FOLIC ACID 1 MG TABLET PO SCH (20:55)
[2021-08-05] MEDS: APIXABAN 5 MG TABLET PO SCH (20:55)
[2021-08-05] MEDS: ROSUVASTATIN 10 MG TAB PO SCH (20:58)
--- NOTE | 2021-08-06 03:21 | HP ---
Date of Admission: 08/04/2021 Entrance Complaint: Discomfort in the right hand and fingers. History Of Present Illness: The patient woke up with the above-outlined symptoms. He stated he had no prior warning. When he went to sleep he was fine. There was no other associated symptomatology. In view of these findings; however, he came to the ER for further evaluation, possibility of him hav ing a stroke. Past History: The patient has had significant cardiovascular disease, including a number of procedur es, was last evaluated by a horticultural therapist about 9 months ago, which time he was told he was normal and continued him on his medication with no changes. Since that time, he states he has been basically s table with no physical finding that are unusual. He has been quite active. Family History: Noncontributory. Social History: Nonsmoker, nondrinker. Physical Examination: General: Patient is a thin, elderly male, in no acute distress with stable vital signs. Head and Neck: Normocephalic. Pupils equal and reactive to light and accommodation. Fundi negative . Trachea midline. Thyroid not palpable. ENT negative. Chest: Clear to P and A. Cardiovascular: PMI at the midclavicular line. Heart: Sounds normal. Peripheral pulses present and equal bilaterally. Abdomen: No organomegaly. Bowel sounds normal. Extremities: The time that I saw him, he had no defects in sensory or muscular in his extremities. Rectal: Deferred. Impression: 1.Transient ischemic attack/cerebrovascular accident. 2.Hypertension, controlled. 3.Coronary artery disease by history. Plan: The patient will be admitted, placed on stroke protocol, re-evaluated by Neurology. HR/MODL Voice ID: [id number]
[2021-08-06] MEDS: INSULIN -REGULAR HUMAN 50 UNIT/0.5 ML ML SQ SCH ×4 (07:30→20:45)
[2021-08-06] MEDS: ASPIRIN EC 81 MG TAB PO SCH (08:29)
[2021-08-06] MEDS: APIXABAN 5 MG TABLET PO SCH ×2 (08:29→20:31)
[2021-08-06] MEDS: FOLIC ACID 1 MG TABLET PO SCH (08:29)
[2021-08-06] MEDS: NA CHLORIDE 0.9% 1,000 ML IV SCH (08:29)
[2021-08-06] MEDS ORDERED: NA CHLORIDE 0.9% 50 ML ONE (13:30)
--- NOTE | 2021-08-06 16:20 | PN ---
Date of Progress Note: 08/06/2021 The patient is basically asymptomatic this morning. He has been up and about. His hand motion and s trength are good. No further symptoms regarding the CVA and TIA. He has been accepted at [facility]. They had objective of doing a TTE; however, there was no bed availability and we will continue to m onitor him another 24 hours and if he is not transferred by the weekend, probably be discharged, foll ow up on outpatient basis with Dr. Doty; however, if he becomes symptomatic or has another episode, p refer that we keep him here until the transfer is accomplished. HR/MODL Voice ID: [id number] Report ID: [id number]
[2021-08-06] MEDS: ROSUVASTATIN 10 MG TAB PO SCH (20:31)
[2021-08-07 06:46] VITALS: BMI 23.8
[2021-08-07] MEDS: INSULIN -REGULAR HUMAN 50 UNIT/0.5 ML ML SQ SCH ×2 (07:30→11:30)
[2021-08-07 08:46] VITALS: O2SAT 100
[2021-08-07] MEDS: ASPIRIN EC 81 MG TAB PO SCH (09:41)
[2021-08-07] MEDS: APIXABAN 5 MG TABLET PO SCH (09:41)
[2021-08-07] MEDS: FOLIC ACID 1 MG TABLET PO SCH (09:41)
[2021-08-07 12:13] VITALS: TEMP 97.4
[2021-08-07 16:25] VITALS: BP 151/77
--- NOTE | 2021-08-10 13:55 | PN ---
Date of Progress Note: 08/05/2021 Subjective: The patient apparently was stable this morning. He had no changes in his symptoms, and t he possibility of him being discharge was considered. However, prior to being seen by myself or Neur ology, the patient once again had an episode where he had some numbness and tingling of his fingers, difficulty with muscular movement and developed concomitant with that some numbness and tingling of h is lip. However, he stated that it extended somewhat to the cheek with this episode. He felt the wh ole thing lasted about 10 minutes, and when seen after a stroke code was called he was basically back normal physically and mentally, although he did state that he possibly had some problems with his wo rds during this episode. A repeat CAT scan was done, which was negative. Plan: Awaiting his director drug to see above the JOHN. In the meantime, the Eliquis was increased to 5 mg b.i.d. We will continue to monitor, and depending on the availability of the JOHN, the timing of discharge will be decided. HR/MODL Voice ID: [id number] Report ID: [id number]
--- NOTE | 2021-08-15 23:27 | P.DS ---
Admission Date: 08/04/21 Discharge Date: 08/07/21 Disposition: TRANSFER TO [facility] Reason for Admission: CVA Consultations: Neurology - Dr. Guzman Procedures: Problem List Small punctate cortical and subcortical infarcts in the left posterior frontal and left parietal lobes. HTN CAD Brief History of Present Illness: Presented to ED after waking up with pain and tingling sensation in right hand/fingers. Patient stated he did not have any symptoms when he fell asleep the night before. Initial imaging in the ED was negative. Patient was admitted for further evaluation. Hospital Course: Initial CT was negative. MRI revealed small punctate cortial and subcortical infarcts in the left posterior frontal and left parietal lobes. Neurology was consulted and patient's medications were optimized. Patient was about to be discharged home on 08/05 when he developed similar symptoms again, this time with weakness /tingling in his right arm and face as well. Symptoms resolved within minutes. Repeat CT was negative. MRI findings were concerning for embolic origin. JOHN was recommended to rule out cardiac source. Patient was transferred to tertiary care center to have JOHN completed. Vital Signs/Physical Exam: Temp Pulse Resp BP Pulse Ox 97.4 F 86 22 H 151/77 H 100 08/07/21 12:00 08/07/21 14:00 08/07/21 14:00 08/07/21 14:00 08/07/21 14:00 General: Alert, In no apparent distress HEENT: PERRLA, EOMI Respiratory: Clear to auscultation bilaterally, Normal air movement Cardiovascular: No edema, Regular rate/rhythm, Normal S1 S2 Gastrointestinal: Soft and benign, Non-distended, No tenderness Integumentary: No tenderness/swelling Neurological: Normal speech, Normal strength at 5/5 x4 extr, Cranial nerves 3-12 intact, Normal affect Laboratory Data at Discharge: WBC 5.6 K/uL (4.3-10.9) 08/05/21 14:50 Hgb 14.3 g/dL (13.6-17.9) 08/05/21 14:50 Hct 42.8 % (39.6-49.0) 08/05/21 14:50 Plt Count 177 K/uL (152-406) 08/05/21 14:50 PT 17.3 SECONDS (9.5-12.5) H 08/05/21 14:50 INR 1.56 08/05/21 14:50 APTT 36.3 SECONDS (24.3-36.9) 08/05/21 14:50 Sodium 139 mmol/L (136-145) 08/05/21 14:50 Potassium 4.3 mmol/L (3.5-5.1) 08/05/21 14:50 BUN 18 mg/dL (7-18) 08/05/21 14:50 Creatinine 1.14 mg/dL (0.55-1.3) 08/05/21 14:50 Glucose 113 mg/dL (74-106) H 08/05/21 14:50 Magnesium 2.1 mg/dL (1.8-2.4) 08/04/21 04:35 Triglycerides 99 mg/dL (<150) 08/05/21 04:19 Cholesterol 100 mg/dL (<200) 08/05/21 04:19 HDL Cholesterol 36 mg/dL (40-60) L 08/05/21 04:19 Cholesterol/HDL Ratio 2.78 08/05/21 04:19 Home Medications: Aspirin [Aspirin EC 81 MG] 81 mg PO DAILY 09/02/16 Clopidogrel Bisulfate [Plavix*] 75 mg PO DAILY 09/02/16 Fenofibrate Nanocrystallized [Fenofibrate] 145 mg PO DAILY 09/02/16 Ferrous Fumarate/Vit Bcomp&C [Super B-Complex Caplet] 1 tab PO DAILY 09/02/16 Glucosamine/MSM/Chondroit Sulf [Ecgidwpvlka-Gseujuhjltt-WUJ Tb] 1 tab PO DAILY 09/02/16 Metoprolol Tartrate 25 mg PO BID 09/02/16 Multivit-Min/FA/Lycopen/Lutein [Centrum Silver Tablet] 1 tab PO DAILY 09/02/16 [place]-3/Dha/Epa/Fish Oil [[place] 3 500 Softgel] 1 cap PO DAILY 09/02/16 Ubidecarenone/Vit E Acet [Co Q-10 100 mg Softgel] 1 cap PO DAILY 09/02/16 ramipriL [Altace*] 5 mg PO BEDTIME 09/02/16 Insulin 70/30 NPH/Reg Human [Novolin 70/30*] 12 units SQ BID 02/02/21 Nateglinide 60 mg PO TID 02/02/21 Rosuvastatin Calcium 40 mg PO DAILY 02/02/21 Followup: Unknown,U [Primary Care Provider] - Time spent managing pt's care (in minutes): 45
== END 2021-08-07 15:15 | disposition short-term general hospital (02) | DRG 66 ==
LOC: ER 04:26 → ERHOLD 05:59 → 3RD-ICU 23:55
PROVIDERS: ADMIT Family Medicine; ATTEND Family Medicine
DX: I63.9 Cerebral infarction, unspecified (principal); G83.21 Monoplegia of upper limb affecting right dominant side; I10 Essential (primary) hypertension; I25.10 Atherosclerotic heart disease of native coronary artery without angina pectoris; E11.9 Type 2 diabetes mellitus without complications; E78.5 Hyperlipidemia, unspecified; Z95.5 Presence of coronary angioplasty implant and graft; Z20.822 Contact with and (suspected) exposure to COVID-19
CPT/HCPCS: 36415; 70450; 70544; 70549; 70553; 71045; 80048; 80061; 82550; 82553; 82947; 83735; 84484; 85025; 85610; 85730; 93005; 94760; 97112; 97116; 97161; 99285; A9577; J1815; J7030; J7060; U0003